=== PATIENT | female | born 1970 | race Caucasian/White ===

== ENCOUNTER 2018-07-03 14:11 | Day surgery (SDC) | payer OTHER, SELFPAY ==
--- NOTE | 2018-07-03 | PATH_ITS ---
[facility] Accession Number: [id number] . 01 Material submitted: . ESOPHAGEAL BIOPSY . 01 Clinical history: . ESOPHAGEAL BIOPSY, R/O EOSINOPHILIC ESOPHAGITIS . 02 Diagnosis: Esophageal Biopsy: Squamous mucosa with no diagnostic abnormality. Intraepithelial eosinophils are not increased. Negative for dysplasia and malignancy. [facility]/07/05/2018 . 02 Electronically signed: . Balbina Tyson MD, Pathologist NPI- [id number] . 01 Gross description: . ESOPHAGEAL BIOPSY: Received in formalin are multiple fragment(s) of lopes, soft tissue measuring 0.2 x 0.1 x 0.1 cm in aggregate submitted entirely in 1 cassette(s) /CKI /CKI . 02 Pathologist provided ICD-10: K20.9 . 02 CPT . 358450 Performed at: 01 [facility] [address] [address], [place], [place] [id number] MD Trever Swenson MD Phone: [phone] Performed at: 02 [facility] [address] [place], [place] [id number] MD Amy Marsh MD Phone: [phone]
--- NOTE | 2018-07-03 12:50 | PM.HP.1 ---
History of Present Illness Date Patient Seen: 07/03/18 Chief complaint: [id number] Narrative: 48-year-old female who was seen in our office on 06/18/2018 due to esophageal dysphagia. Please refer to our office note for further details. There had been no changes to Reglan of condition since that office visit. Patient History Social History household members: spouse and children Meds Home Medications Medication Instructions Recorded Confirmed Type aloe vera PO Q DAY #0 05/10/17 History amlodipine-benazepril [Lotrel] PO QDAY #0 05/10/17 History aspirin 162 mg PRN #0 05/10/17 History Allergies Allergy/AdvReac Type Severity Reaction Status Date / Time isoniazid AdvReac Intermediate Tingling Verified 07/03/18 14:58 in feet and hands Exam Narrative Exam Narrative: General: Patient is obese, not in apparent distress Cardiovascular: Regular rate and rhythm, no murmurs, rubs, or gallops; no evidence of edema; no palpable abdominal aortic aneurysm Gastrointestinal: Normoactive bowel sounds, soft, nontender, nondistended, no rebound tenderness, no hepatosplenomegaly, no evidence of hernia Assessment & Plan Assessment Narrative: 48-year-old female with esophageal dysphagia, history of gastric band who is here for evaluation by means of EGD Regarding the procedure(s), the risks and potential complications, benefits, and alternatives (including not doing the procedure) were discussed with the patient. The risks include but are not limited to bleeding, splenic injury, infection, perforation which may require surgical intervention, missed lesions, and adverse reactions to sedative medicines. After a question and answer period, the patient agreed to proceed with the procedure(s) and gives informed consent.
[2018-07-03 14:45] VITALS: BP 138/80; PULSE 96; RESP 20; TEMP 36.2; O2SAT 98; BMI 42.7
[2018-07-03] MEDS: SODIUM CHLORIDE 0.9% 1,000 ML 70 ML IV (14:45)
[2018-07-03] MEDS: fentaNYL 250 MCG/5 ML INJ IV (15:30)
[2018-07-03] MEDS: MIDAZOLAM 5 MG/5 ML VIAL IV (15:31)
--- NOTE | 2018-07-03 15:36 | PM.OP.ENDO ---
Operative Date/Time/Diagnoses Date of procedure: 07/03/18 Procedure Notes Procedure in detail: Surgeon: Chan Werner MD Procedure: Esophagogastroduodenoscopy with biopsy Preoperative diagnosis: Pharyngoesophageal dysphagia Postoperative diagnosis: Normal esophagus status post biopsies, lap band in adequate position, normal visualized stomach and duodenum Medications: Conscious sedation using 5 mg IV of Midazolam and 100 mcg IV of Fentanyl Preanesthesia Assessment An H and P was performed/updated and the Px?s ASA class is 2. The procedure was discussed in detail with the patient. The potential risks and complications including infection, bleeding, missed lesions, perforation, need for surgery in case of perforation, prolonged hospital stay, and were explained. A brief question and answer period was allotted and once all questions were answered, informed consent was obtained. The patient was brought back to the procedure room and placed on standard monitoring. The patient?s vital signs were monitored continuously throughout the entire procedure. Prior to starting, a timeout was performed to confirm the patient?s identity, allergies, medications, and procedure. Procedure in detail The patient was placed in left lateral decubitus position and a bite block was inserted. The tip of the upper endoscope was placed into the mouth and advanced without difficulty under direct visualization into the esophagus. Esophagus: The UES and entire esophagus appeared normal. Random biopsies were taken from the mid and proximal esophagus to rule out EOE. The GE junction and Z-line appeared normal Stomach: There was note of a lap band on retroflexion in the cardia and this appeared to be in adequate position. The remainder of the stomach appeared normal Duodenum: The visualized duodenum was normal The patient tolerated the procedure well and will be brought back to the recovery area to be discharged once criteria are met. The total physician intraservice time was 6 min. Complications There were no complications and estimated blood loss was minimal. Recommendations: Resume previous diet Continue outPx medications Follow up pathology results Office follow up with Dr Mix at next available appointment An emergency contact number was given to the patient for any complications related to the procedure
--- NOTE | 2018-07-03 15:50 | PM.DS.1 ---
History of Present Illness Chief complaint: [id number] Narrative: 48-year-old female who was seen in our office on 06/18/2018 due to esophageal dysphagia. Please refer to our office note for further details. There had been no changes to Reglan of condition since that office visit. Discharge Providers Primary care physician: Jaime Schwartz MD Discharge provider: Chan Werenr MD Discharge Date: 07/03/18 Exam Vital Signs (past 8 hours): - 07/03/18 14:45 Temperature 97.1 F L Pulse Rate 96 H Respiratory Rate 20 Blood Pressure 138/80 Pulse Oximetry 98 Oxygen Delivery Method Room Air Narrative Exam Narrative: General: Patient is obese, not in apparent distress Cardiovascular: Regular rate and rhythm, no murmurs, rubs, or gallops; no evidence of edema; no palpable abdominal aortic aneurysm Gastrointestinal: Normoactive bowel sounds, soft, nontender, nondistended, no rebound tenderness, no hepatosplenomegaly, no evidence of hernia Discharge Plan Discharge Plan Patient Disposition: Home Discharge comment: You will be discharged with a copy of your procedure report Discharge Med Rec/Prescriptions Prescriptions: Continued amlodipine-benazepril [Lotrel] 5-10 mg capsule PO QDAY Qty: 0 RF: 0 aspirin 81 MG tablet,chewable 162 mg PRN (Reason: Pain, Moderate) Qty: 0 RF: 0 aloe vera 25 mg capsule PO Q DAY Qty: 0 RF: 0 Follow up/Referrals: Jaime Schwartz MD [Primary Care Provider] - Discharge Orders: Discharge (Order); Ordered 07/03/18 Ordered By: Chan Werner Provider Discharge Instructions Diet: Diet as Tolerated Visit Report/Discharge Packet Stand Alone Forms: EGD Result: [facility], Surgery Discharge Discharge Data Primary Care Provider: Jaime Shcwartz Attending Provider: Chan Werner
[2018-07-03 15:53] VITALS: BP 136/70; PULSE 89; RESP 21; TEMP 37; O2SAT 97
[2018-07-03 15:58] VITALS: BP 126/77; PULSE 84; RESP 19; O2SAT 97
[2018-07-03 16:03] VITALS: BP 124/71; PULSE 93; RESP 22; O2SAT 95
[2018-07-03 16:25] VITALS: BP 128/77; PULSE 84; RESP 20; TEMP 36.7; O2SAT 98
== END 2018-07-03 16:30 | disposition home or self-care (01) ==
PROVIDERS: Visit Provider Internal Medicine Gastroenterology
PROC: 0DJ08ZZ Inspection of Upper Intestinal Tract, Via Natural or Artificial Opening Endoscopic (ICD-10-PCS; CPT 43235; principal; 2018-07-03 15:30)
DX: K20.9 Esophagitis, unspecified (principal); Z98.84 Bariatric surgery status
CPT/HCPCS: 43239; 88305; J2250; J3010

== ENCOUNTER 2018-07-10 12:08 | Emergency (ER) | payer OTHER, SELFPAY ==
[2018-07-10 12:12] VITALS: BP 135/90; PULSE 98; RESP 16; TEMP 36.1; O2SAT 98; BMI 43.5
[2018-07-10 14:43] VITALS: BP 148/95; PULSE 87; RESP 18; O2SAT 96
--- NOTE | 2018-07-10 14:47 | PC.NURSE ---
Pt has a hard bump on left cheek.
--- NOTE | 2018-07-10 19:39 | ED_ITS ---
HPI - Head Injury General Chief complaint: Head Injury Stated complaint: BROKEN FACIAL BONES LT SIDE Time Seen by Provider: 07/10/18 12:25 Source: patient Mode of arrival: ambulatory Limitations: no limitations History of Present Illness HPI Narrative: 48-year-old female, nonsmoker with history of hypertension presents at the request of her primary care provider for evaluation of a bump on her left face. Patient suffered a ground level fall about 1 month ago which resulted in rather impressive bruising over her left cheek. That bruising has since resolved but there is small, quarter sized lump left in the aftermath. The patient denies any ongoing symptoms. She has no pain, denies double vision or blurred vision, denies any numbness or tingling to her teeth and is otherwise well. She denies other injury. She has no nausea, vomiting. She denies any chest pain or shortness of breath. She denies any extremity injuries MD Complaint: head injury Onset (ago): month(s) Mechanism of Injury: fall Place: home Loss of Consciousness: no Location of injury: frontal Other Injuries: none Associated symptoms: denies other symptoms Related Data Home Medications Medication Instructions Recorded Confirmed aloe vera PO Q DAY #0 05/10/17 aspirin 162 mg PRN #0 05/10/17 amlodipine-benazepril 1 cap PO DAILY 07/10/18 07/10/18 Allergies Allergy/AdvReac Type Severity Reaction Status Date / Time isoniazid AdvReac Intermediate Tingling Verified 07/10/18 12:12 in feet and hands Review of Systems Constitutional Denies chills, Denies fever(s), Denies lethargy and Denies weakness Eyes Denies change in vision, Denies eye discharge, Denies irritation and Denies loss of vision ENT Ears, Nose, Mouth, and Throat: Denies change in voice, Denies neck pain and Denies sore throat Cardiovascular Denies chest pain, Denies irregular heart rhythm, Denies lightheadedness, Denies palpitations, Denies dyspnea, Denies dyspnea on exertion and Denies orthopnea Respiratory Denies cough, Denies dyspnea, Denies dyspnea on exertion and Denies wheezing Gastrointestinal Gastrointestinal: Denies abdominal pain, Denies change in bowel habits, Denies diarrhea, Denies nausea and Denies vomiting Genitourinary Denies hematuria, Denies flank pain, Denies urinary incontinence and Denies urinary urgency Musculoskeletal Denies neck pain Integumentary/Breasts Denies pruritus, Denies erythema, Denies rash, Reports skin pain, Reports skin swelling and Denies wounds Neurologic Denies confusion, Denies loss of vision and Denies weakness Psychiatric Denies anxiety, Denies confusion, Denies depression, Denies homicidal ideation and Denies suicidal ideation Endocrine Denies palpitations Hematologic/Lymphatic Denies easy bruising Allergic/Immunologic Denies wheezing PFSH Social History household members: spouse and children Smoking Status: Never smoker Social History household members: spouse and children Smoking Status: Never smoker Exam Narrative Exam Narrative: GEN: AOx3 and in mild distress, GCS 15 EYES: Pupils are equal, round, and reactive to light and accommodation. Extraoccular muscles are intact bilaterally. There is no subconjunctival hemorrhage or exudate. HEAD: 2cm area of freely mobile induration in the skin of face overlying L zygoma. The underlying bone is nontender. CHEST: Lungs are clear to auscultation bilaterally and free of wheezes, rales, or rhonchi. Heart rate is regular rhythm, there are no murmurs, clicks, rubs, or gallops. There is no chest wall tenderness. ABD: Abdomen is soft and nontender. There is no guarding or rebound. Bowel sounds are normal in all 4 quadrants. There is no mass or organomegaly. EXT: Full painless ROM of all extremities with no loss of sensation or strength. SKIN: Warm, pink, and dry. No erythema or rash Initial Vital Signs Initial Vital Signs: Vital Signs Temperature 96.9 F L 07/10/18 12:12 Pulse Rate 98 H 07/10/18 12:12 Respiratory Rate 16 07/10/18 12:12 Blood Pressure 135/90 07/10/18 12:12 Pulse Oximetry 98 07/10/18 12:12 Course Reevaluation(s) Reevaluation #1: I had a lengthy discussion with the patient about how to proceed. Even if she had a fracture 1 month ago. It is likely almost completely healed by now. She has no evidence of entrapment of extraocular muscles or involvement of facial or alveolar nerves. She is nontender and any advanced imaging is very unlikely to change the outcome. The area of induration is likely a residual hematoma from the fall given her description of the amount of bruising. There is no redness, fluctuance or warmth to suggest infectious etiology. We discussed the pros and cons of doing advanced imaging and she elects to forego a facial bone CT right now as it is unlikely to change the outcome of her case or disposition Vital Signs - 8 hr 07/10/18 12:12 07/10/18 14:43 Temperature 96.9 F L Pulse Rate 98 H 87 Respiratory Rate 16 18 Blood Pressure 135/90 Blood Pressure [Left Arm] 148/95 H Pulse Oximetry 98 96 Discharge Plan Departure Patient Disposition: Home Clinical Impression: Contusion of face Qualifiers: Encounter type: initial encounter Qualified Code(s): S00.83XA - Contusion of other part of head, initial encounter Discharge Date/Time: 07/10/18 15:17 Interventions: ED Discharge Assessment Last Done: 07/10/18 15:17 Instructions: DI for Contusion Activity Restrictions/Additional Instructions: *You have been diagnosed with [ facial contusion ] *What to do: *Follow up with your primary care provider in 2-3 days, call for an appoint ment. Let them know you were seen in the Emergency Department and that we ask that you be seen in follow up *Return to ER if you should have any new, worsening or concerning symptoms Prescriptions: No Action aspirin 81 MG tablet,chewable 162 mg PRN (Reason: Pain, Moderate) Qty: 0 RF: 0 aloe vera 25 mg capsule PO Q DAY Qty: 0 RF: 0 amlodipine-benazepril 10-40 mg capsule 1 cap PO DAILY RF: 0 Referrals: Jaime Schwartz MD [Primary Care Provider] -
== END 2018-07-10 15:17 | disposition home or self-care (01) ==
PROVIDERS: Emergency Provider Emergency Medicine
DX: S00.83XA Contusion of other part of head, initial encounter (principal); W18.43XA Slipping, tripping and stumbling without falling due to stepping from one level to another, initial encounter
CPT/HCPCS: 99282

== ENCOUNTER 2019-03-13 03:47 | Emergency (ER) | payer OTHER, SELFPAY ==
--- NOTE | 2019-03-13 04:22 | ED.CHESTPAIN ---
HPI - Chest Pain <Henrry Ghotra DO - Last Filed: 03/13/19 22:25> General Chief Complaint: Chest Pain Stated Complaint: chest issues/heavy heart area/neck shoulders tight Time Seen by Provider: 03/13/19 04:00 Source: patient Mode of arrival: Ambulatory Limitations: no limitations History of Present Illness HPI narrative: 48-year-old female nonsmoker with history of hypertension and morbid obesity presents with a chief complaint of anterior chest pressure that started at about 2:00 a.m.. She went to bed feeling fine but was awoke and by a barking dog at which point she noted some anterior chest pressure. She states his is aching in nature and a 2/10 in intensity. She denies any radiation. She states it is made worse when she lies flat and improves when sitting up. She walked an abnormal distance for her earlier in the day and denies any provocation with exertion. Additionally, she denies any associated symptoms or other cardiac equivalent such as dizziness, weakness, lightheadedness, shortness of breath, nausea, vomiting or diaphoresis. She denies any history of same. She denies any recent illness. She denies any recent travel, history of clot or other risk factors for PE. She did take 2 baby aspirin prior to her arrival MD complaint: chest pain Onset (ago): hour(s) Duration: intermittent Onset: during rest Pain location: substernal Severity: mild Quality: aching Pain radiation: none Relieving factors: leaning forward Exacerbating factors: supine Treatments prior to arrival chest pain: aspirin Related Data On Oral Contraceptives: No Home Medications Medication Instructions Recorded Confirmed aloe vera PO Q DAY #0 05/10/17 aspirin 162 mg PRN #0 05/10/17 amlodipine-benazepril 1 cap PO DAILY 07/10/18 07/10/18 Allergies Allergy/AdvReac Type Severity Reaction Status Date / Time isoniazid AdvReac Intermediate Tingling Verified 07/10/18 12:12 in feet and hands Review of Systems <Henrry Ghotra DO - Last Filed: 03/13/19 22:25> Constitutional Constitutional: Denies chills, Denies fatigue, Denies fever(s), Denies frequent falls, Denies lethargy and Denies weakness Eyes Eyes: Denies change in vision, Denies eye discharge, Denies irritation and Denies loss of vision ENT Ears, Nose, Mouth, and Throat: Denies change in voice, Denies dizziness, Denies neck pain, Denies sore throat and Denies throat swelling Cardiovascular Cardiovascular: Reports chest pain, Denies irregular heart rhythm, Denies lightheadedness, Denies palpitations, Denies dyspnea, Denies dyspnea on exertion and Denies orthopnea Respiratory Respiratory: Denies cough, Denies dyspnea, Denies dyspnea on exertion and Denies wheezing Gastrointestinal Gastrointestinal: Denies abdominal pain, Denies change in bowel habits, Denies diarrhea, Denies nausea and Denies vomiting Genitourinary Genitourinary: Denies hematuria, Denies flank pain, Denies urinary incontinence and Denies urinary urgency Musculoskeletal Musculoskeletal: Denies back pain, Denies muscle weakness, Denies neck pain, Denies numbness and Denies tingling Integumentary/Breasts Skin/Breast: Denies pruritus, Denies erythema, Denies rash and Denies wounds Neurologic Neurologic: Denies behavioral changes, Denies confusion, Denies dizziness, Denies frequent falls, Denies loss of vision, Denies numbness, Denies tingling and Denies weakness Psychiatric Psychiatric: Denies anxiety, Denies behavioral changes, Denies confusion, Denies depression, Denies homicidal ideation and Denies suicidal ideation Endocrine Endocrine: Denies fatigue, Denies flushing and Denies palpitations Hematologic/Lymphatic Hematologic/Lymphatic: Denies easy bruising Allergic/Immunologic Allergic/Immunologic: Denies urticaria, Denies throat swelling and Denies wheezing Patient History <Henrry Ghtora DO - Last Filed: 03/13/19 22:25> Social History household members: spouse and children Smoking Status: Never smoker Social History household members: spouse and children Smoking Status: Never smoker alcohol intake frequency: holidays/special occasions only Substance Use Type: does not use Exam <Henrry Ghotra DO - Last Filed: 03/13/19 22:25> Narrative Exam Narrative: GENERAL: [48] year old patient appears stated age. Well-nourished, well-developed patient, in mild distress. Obese HEAD: Atraumatic. Normocephalic. EYES: Pupils equal round and reactive. Extraocular motions intact. No scleral icterus. No injection or drainage. ENT: Nose without bleeding, purulent drainage. Throat without erythema, tonsillar hypertrophy or exudate. Airway patent. NECK: Trachea midline. Non tender CARDIOVASCULAR: Regular rate and rhythm without murmurs, gallops, or rubs. RESPIRATORY: Clear to auscultation. Breath sounds equal bilaterally. No wheezes, rales, or rhonchi. GASTROINTESTINAL: Abdomen soft, non-tender, nondistended. EXTREMITIES: No edema or joint tenderness. BACK: Nontender without deformity or crepitance. No flank tenderness. NEURO: AOx3. SKIN: No rash or erythema of visible areas Initial Vital Signs Initial Vital Signs: Vital Signs Pulse Rate 77 03/13/19 05:31 Respiratory Rate 17 03/13/19 05:31 Blood Pressure 120/56 L 03/13/19 05:31 Pulse Oximetry 98 03/13/19 05:31 <Balbina Galo MD - Last Filed: 03/13/19 19:58> Initial Vital Signs Initial Vital Signs: Vital Signs Pulse Rate 77 03/13/19 05:31 Respiratory Rate 17 03/13/19 05:31 Blood Pressure 120/56 L 03/13/19 05:31 Pulse Oximetry 98 03/13/19 05:31 Scores <Henrry Ghotra DO - Last Filed: 03/13/19 22:25> HEART Score Heart Score history: Slightly Suspicious Heart Score EKG: Normal Heart Score Age: 45-64 years old Heart Score risk factors: 1-2 risk factors Heart Score troponin: < or = to normal limit Heart Score Total: 2 Course <Henrry Ghotra DO - Last Filed: 03/13/19 22:25> Orders Ordered: Discontinued Medications Aspirin (Aspirin Chew) 324 mg PO NOW ONE Stop: 03/13/19 04:50 Last Admin: 03/13/19 05:06 Dose: 324 mg Documented by: JENNY Pantoprazole Sodium (Protonix) 40 mg IV NOW ONE Stop: 03/13/19 04:50 Last Admin: 03/13/19 05:06 Dose: 40 mg Documented by: BRANDOFARL <Balbina Galo MD - Last Filed: 03/13/19 19:58> Course Course Narrative: Iraj note: Patient was signed out to me by Dr. Ghotra pending repeat troponin after initially being evaluated for chest pain. Her initial workup was negative. The patient was pain-free in the emergency department at the time of sign out, and was feeling quite good. She had a low risk score. Her repeat troponin was negative. We have discussed home management of symptoms, the need for follow-up, and the usual indications for return. Orders Ordered: Discontinued Medications Aspirin (Aspirin Chew) 324 mg PO NOW ONE Stop: 03/13/19 04:50 Last Admin: 03/13/19 05:06 Dose: 324 mg Documented by: JENNY Pantoprazole Sodium (Protonix) 40 mg IV NOW ONE Stop: 03/13/19 04:50 Last Admin: 03/13/19 05:06 Dose: 40 mg Documented by: JENNY MDM - Chest Pain <Henrry Ghotra DO - Last Filed: 03/13/19 22:25> Lab Data Result diagrams: 03/13/19 04:00 03/13/19 04:00 Labs: Lab Results 03/13/19 03/13/19 03/13/19 Range/Units 04:00 04:00 04:00 WBC 12.7 H (4.5-11.0) X10^3/uL RBC 4.84 (4.0-5.2) X10^6/uL Hgb 14.0 (12.0-16.0) g/dL Hct 41.9 (36-46) % MCV 86.6 (80-100) fL MCH 29.0 (26-34) PG MCHC 33.4 (30-36) % RDW 13.6 (11.6-14.8) % Plt Count 303 (150-400) X10^3/uL Neut % (Auto) 73.4 (50-75) % Lymph % (Auto) 18.8 L (25-40) % Cedar % (Auto) 5.9 (3-14) % Eos % (Auto) 1.4 L (2-4) % Baso % (Auto) 0.5 (0-2) % Neut # (Auto) 9400 H (5692-7458) /uL Lymph # (Auto) 2400 (2111-9851) /uL Cedar # (Auto) 800 (0-900) /uL Eos # (Auto) 200 (0-450) /uL Baso # (Auto) 100 (0-100) /uL PT 10.2 (10.1-12.7) SECONDS INR 0.9 (0.9-1.3) APTT 34 (26.4-36.2) SECONDS D-Dimer (<230) ng/mL Sodium 137 (137-145) mmol/L Potassium 4.1 (3.4-5.1) mmol/L Chloride 104 (98-107) mmol/L Carbon Dioxide 24 (22-32) mmol/L BUN 11 (7-17) mg/dL Creatinine 0.60 (0.52-1.04) mg/dL Estimated GFR > 60.0 (>60) mL/min BUN/Creatinine Ratio 18.3 (6-22) Glucose 151 H (70-100) mg/dL Calcium 9.2 (8.4-10.2) mg/dL Total Bilirubin 0.9 (0.2-1.3) mg/dL AST 30 (14-36) IU/L ALT 34 (9-52) IU/L Alkaline Phosphatase 90 (38-126) U/L Total Creatine Kinase 49 (30-135) U/L CK-MB (CK-2) TNP CK-MB (CK-2) Rel Index TNP Troponin I < 0.012 (0.01-0.034) ng/mL Total Protein 7.7 (6.3-8.2) g/dL Albumin 4.4 (3.5-5.0) g/dL Globulin 3.3 (1.7-4.1) g/dL Albumin/Globulin Ratio 1.3 (1.0-2.8) Lipase 58 (23-300) U/L 03/13/19 03/13/19 Range/Units 04:00 06:50 WBC (4.5-11.0) X10^3/uL RBC (4.0-5.2) X10^6/uL Hgb (12.0-16.0) g/dL Hct (36-46) % MCV (80-100) fL MCH (26-34) PG MCHC (30-36) % RDW (11.6-14.8) % Plt Count (150-400) X10^3/uL Neut % (Auto) (50-75) % Lymph % (Auto) (25-40) % Cedar % (Auto) (3-14) % Eos % (Auto) (2-4) % Baso % (Auto) (0-2) % Neut # (Auto) (3490-8606) /uL Lymph # (Auto) (1266-9205) /uL Cedar # (Auto) (0-900) /uL Eos # (Auto) (0-450) /uL Baso # (Auto) (0-100) /uL PT (10.1-12.7) SECONDS INR (0.9-1.3) APTT (26.4-36.2) SECONDS D-Dimer 205 (<230) ng/mL Sodium (137-145) mmol/L Potassium (3.4-5.1) mmol/L Chloride (98-107) mmol/L Carbon Dioxide (22-32) mmol/L BUN (7-17) mg/dL Creatinine (0.52-1.04) mg/dL Estimated GFR (>60) mL/min BUN/Creatinine Ratio (6-22) Glucose (70-100) mg/dL Calcium (8.4-10.2) mg/dL Total Bilirubin (0.2-1.3) mg/dL AST (14-36) IU/L ALT (9-52) IU/L Alkaline Phosphatase (38-126) U/L Total Creatine Kinase (30-135) U/L CK-MB (CK-2) CK-MB (CK-2) Rel Index Troponin I < 0.012 (0.01-0.034) ng/mL Total Protein (6.3-8.2) g/dL Albumin (3.5-5.0) g/dL Globulin (1.7-4.1) g/dL Albumin/Globulin Ratio (1.0-2.8) Lipase (23-300) U/L ECG Data Attestation: I personally reviewed and interpreted this ECG as follows: Prior ECG tracings: not available for review Interpretation: EKG is normal sinus rhythm rate [ 88] and free of any signs of ischemia or ectopy. No ST segmental elevation or depression. No T wave inversions <Balbina Galo MD - Last Filed: 03/13/19 19:58> Medical Records Data Attestation: I reviewed the patient's medical records. Lab Data Attestation: I reviewed the patient's lab results. Labs: Lab Results 03/13/19 03/13/19 03/13/19 Range/Units 04:00 04:00 04:00 WBC 12.7 H (4.5-11.0) X10^3/uL RBC 4.84 (4.0-5.2) X10^6/uL Hgb 14.0 (12.0-16.0) g/dL Hct 41.9 (36-46) % MCV 86.6 (80-100) fL MCH 29.0 (26-34) PG MCHC 33.4 (30-36) % RDW 13.6 (11.6-14.8) % Plt Count 303 (150-400) X10^3/uL Neut % (Auto) 73.4 (50-75) % Lymph % (Auto) 18.8 L (25-40) % Cedar % (Auto) 5.9 (3-14) % Eos % (Auto) 1.4 L (2-4) % Baso % (Auto) 0.5 (0-2) % Neut # (Auto) 9400 H (2604-4588) /uL Lymph # (Auto) 2400 (0504-4813) /uL Cedar # (Auto) 800 (0-900) /uL Eos # (Auto) 200 (0-450) /uL Baso # (Auto) 100 (0-100) /uL PT 10.2 (10.1-12.7) SECONDS INR 0.9 (0.9-1.3) APTT 34 (26.4-36.2) SECONDS D-Dimer (<230) ng/mL Sodium 137 (137-145) mmol/L Potassium 4.1 (3.4-5.1) mmol/L Chloride 104 (98-107) mmol/L Carbon Dioxide 24 (22-32) mmol/L BUN 11 (7-17) mg/dL Creatinine 0.60 (0.52-1.04) mg/dL Estimated GFR > 60.0 (>60) mL/min BUN/Creatinine Ratio 18.3 (6-22) Glucose 151 H (70-100) mg/dL Calcium 9.2 (8.4-10.2) mg/dL Total Bilirubin 0.9 (0.2-1.3) mg/dL AST 30 (14-36) IU/L ALT 34 (9-52) IU/L Alkaline Phosphatase 90 (38-126) U/L Total Creatine Kinase 49 (30-135) U/L CK-MB (CK-2) TNP CK-MB (CK-2) Rel Index TNP Troponin I < 0.012 (0.01-0.034) ng/mL Total Protein 7.7 (6.3-8.2) g/dL Albumin 4.4 (3.5-5.0) g/dL Globulin 3.3 (1.7-4.1) g/dL Albumin/Globulin Ratio 1.3 (1.0-2.8) Lipase 58 (23-300) U/L 03/13/19 03/13/19 Range/Units 04:00 06:50 WBC (4.5-11.0) X10^3/uL RBC (4.0-5.2) X10^6/uL Hgb (12.0-16.0) g/dL Hct (36-46) % MCV (80-100) fL MCH (26-34) PG MCHC (30-36) % RDW (11.6-14.8) % Plt Count (150-400) X10^3/uL Neut % (Auto) (50-75) % Lymph % (Auto) (25-40) % Cedar % (Auto) (3-14) % Eos % (Auto) (2-4) % Baso % (Auto) (0-2) % Neut # (Auto) (0492-0280) /uL Lymph # (Auto) (8990-1887) /uL Cedar # (Auto) (0-900) /uL Eos # (Auto) (0-450) /uL Baso # (Auto) (0-100) /uL PT (10.1-12.7) SECONDS INR (0.9-1.3) APTT (26.4-36.2) SECONDS D-Dimer 205 (<230) ng/mL Sodium (137-145) mmol/L Potassium (3.4-5.1) mmol/L Chloride (98-107) mmol/L Carbon Dioxide (22-32) mmol/L BUN (7-17) mg/dL Creatinine (0.52-1.04) mg/dL Estimated GFR (>60) mL/min BUN/Creatinine Ratio (6-22) Glucose (70-100) mg/dL Calcium (8.4-10.2) mg/dL Total Bilirubin (0.2-1.3) mg/dL AST (14-36) IU/L ALT (9-52) IU/L Alkaline Phosphatase (38-126) U/L Total Creatine Kinase (30-135) U/L CK-MB (CK-2) CK-MB (CK-2) Rel Index Troponin I < 0.012 (0.01-0.034) ng/mL Total Protein (6.3-8.2) g/dL Albumin (3.5-5.0) g/dL Globulin (1.7-4.1) g/dL Albumin/Globulin Ratio (1.0-2.8) Lipase (23-300) U/L Discharge Plan Departure Patient Disposition: Home Clinical Impression: Chest pain Qualifiers: Chest pain type: unspecified Qualified Code(s): R07.9 - Chest pain, unspecified Discharge Date/Time: 03/13/19 08:16 Instructions: DI for Chest Pain Activity Restrictions/Additional Instructions: Your labs and studies all look good. There is no evidence of a serious condition causing your pain. If you continue to have the pain for more than 1 week, please follow up with your primary care provider. Prescriptions: No Action aspirin 81 MG tablet,chewable 162 mg PRN (Reason: Pain, Moderate) Qty: 0 RF: 0 aloe vera 25 mg capsule PO Q DAY Qty: 0 RF: 0 amlodipine-benazepril 10-40 mg capsule 1 cap PO DAILY RF: 0 Referrals: [facility] [Provider Group]
--- NOTE | 2019-03-13 04:23 | DI.RAD.S_ITS ---
PROCEDURE: XR CHEST 1V INDICATIONS: chest pain TECHNIQUE: One view of the chest was acquired. COMPARISON: [facility], , CHEST 1 VIEW, 05/10/2017, 22:21. FINDINGS: Surgical changes and devices: A lap band is seen. Lungs and pleura: Lungs are clear. No pleural effusions or pneumothorax. Mediastinum: Mediastinal contours appear normal. Heart size is normal. Bones and chest wall: No suspicious bony lesions. Overlying soft tissues appear unremarkable. IMPRESSION: Portable chest within normal limits. Lap band noted. Dictated by: Joesph Paul M.D. on 03/13/2019 at 9:00 Approved by: Joesph Paul M.D. on 03/13/2019 at 9:00
[2019-03-13 04:35] LABS: Add Manual Diff / Slide Review NO; Basophils Absolute Auto 100 /uL (0-100); Basophils Percent Auto 0.5 % (0-2); Eosinophils Absolute Auto 200 /uL (0-450); Eosinophils Percent Auto 1.4 % (2-4); Hematocrit 41.9 % (36-46); Lymphocytes Absolute Auto 2400 /uL (1100-4500); Lymphocytes Percent Auto 18.8 % (25-40); Mean Corpuscular HGB Conc 33.4 % (30-36); Mean Corpuscular Volume 86.6 fL (80-100); Monocytes Absolute Auto 800 /uL (0-900); Monocytes Percent Auto 5.9 % (3-14); Neutrophils Absolute Auto 9400 /uL (1500-7000); Neutrophils Percent Auto 73.4 % (50-75); Platelet Count 303 X10^3/uL (150-400); Red Blood Cell Count 4.84 X10^6/uL (4.0-5.2); Red Cell Distribution Width 13.6 % (11.6-14.8); White Blood Cell Count 12.7 X10^3/uL (4.5-11.0)
[2019-03-13 04:37] LABS: INR 0.9 (0.9-1.3); Prothrombin Time 10.2 SECONDS (10.1-12.7)
[2019-03-13 04:40] LABS: PTT Partial Thromboplastin Tim 34 SECONDS (26.4-36.2)
[2019-03-13 04:44] LABS: Alanine Aminotransferase 34 IU/L (9-52); Albumin 4.4 g/dL (3.5-5.0); Albumin Globulin Ratio 1.3 (1.0-2.8); Alkaline Phosphatase 90 U/L (38-126); Aspartate Aminotransferase 30 IU/L (14-36); BUN Creatinine Ratio 18.3 (6-22); Bilirubin Total 0.9 mg/dL (0.2-1.3); Blood Urea Nitrogen 11 mg/dL (7-17); Calcium 9.2 mg/dL (8.4-10.2); Carbon Dioxide 24 mmol/L (22-32); Chloride 104 mmol/L (98-107); Creatine Kinase 49 U/L (30-135); Estimated Glomerular Filt Rate > 60.0 mL/min (>60); Globulin 3.3 g/dL (1.7-4.1); Glucose 151 mg/dL (70-100); HEMOLYSIS 23 (0-50); Lipase 58 U/L (23-300); Potassium 4.1 mmol/L (3.4-5.1); Sodium 137 mmol/L (137-145); Total Protein 7.7 g/dL (6.3-8.2)
[2019-03-13 04:48] LABS: D Dimer 205 ng/mL (<230)
[2019-03-13 04:54] LABS: Troponin I < 0.012 ng/mL (0.01-0.034)
[2019-03-13] MEDS: PANTOPRAZOLE 40 MG VIAL IV (05:06)
[2019-03-13] MEDS: ASPIRIN 81 MG CHEW TAB 324 MG PO (05:06)
[2019-03-13 05:31] VITALS: BP 120/56; PULSE 77; RESP 17; O2SAT 98
[2019-03-13 06:00] VITALS: BP 120/69; PULSE 75; RESP 21; O2SAT 96
[2019-03-13 07:23] LABS: Troponin I < 0.012 ng/mL (0.01-0.034)
[2019-03-13 07:30] VITALS: BP 115/62; PULSE 84; RESP 22; O2SAT 99
[2019-03-13 08:01] VITALS: BP 127/92; PULSE 80; RESP 13; O2SAT 100
[2019-03-13 08:15] VITALS: BP 127/92; PULSE 72; RESP 15
== END 2019-03-13 08:16 | disposition home or self-care (01) ==
PROVIDERS: Emergency Medicine; Emergency Provider Emergency Medicine
DX: R07.9 Chest pain, unspecified (principal)
CPT/HCPCS: 36415; 71045; 80053; 82550; 83690; 84484; 85025; 85379; 85610; 85730; 93005; 96374; 99283; 99285; C9113

== ENCOUNTER → 2021-03-07 15:17 | Outpatient (CLI) | payer OTHER, SELFPAY ==
--- NOTE | 2021-03-07 | DI.MG.S_ITS ---
BILATERAL DIGITAL SCREENING MAMMOGRAM 3D/2D WITH CAD: 03/07/2021 CLINICAL: Routine screening. Family history of breast cancer. Comparison is made to exams dated: 04/11/2018 mammogram, 06/01/2014 mammogram, and 11/02/2013 mammogram - outside location. The tissue of both breasts is heterogeneously dense. This may lower the sensitivity of mammography. Current study was also evaluated with a Computer Aided Detection (CAD) system. No significant masses, calcifications, or other findings are seen in either breast. There has been no significant interval change. IMPRESSION: NEGATIVE There is no mammographic evidence of malignancy. A 1 year screening mammogram is recommended. This exam was interpreted at Station ID: [id number]. NOTE: For mammograms, a report in lay terms will be sent to the patient. Approximately 15% of breast malignancies will not be visualized mammographically. In the management of a palpable breast mass, a negative mammogram must not discourage biopsy of a clinically suspicious lesion. Electronically Signed By: Juan Choe acr/kay:03/07/2021 16:16:27 letter sent: Normal Exam ACR BI-RADS Category 1: Negative [id number]
== END ==
PROVIDERS: PCP Family Medicine; Referring Provider Family Medicine; Visit Provider Family Medicine
DX: Z12.31 Encounter for screening mammogram for malignant neoplasm of breast (principal); Z80.3 Family history of malignant neoplasm of breast
CPT/HCPCS: 77063; 77067

== ENCOUNTER → 2022-05-12 09:26 | Outpatient (CLI) | payer OTHER, SELFPAY ==
--- NOTE | 2022-05-12 | DI.US.S_ITS ---
PROCEDURE: US ABDOMEN LIMITED INDICATIONS: Abnormal serum enzyme level, unspecified TECHNIQUE: Real-time focused scanning was performed of the abdomen, with image documentation. COMPARISON: None. FINDINGS: Liver length of 16.8 cm. The liver is echogenic. No biliary ductal dilation demonstrated, extrahepatic duct measures 6 mm. Multiple small gallstones are present in the gallbladder. No gallbladder wall thickening or sonographic Marley sign. Visualized pancreas is unremarkable sonographically. IMPRESSION: 1. The liver is echogenic, a nonspecific finding commonly seen in the setting of steatosis. 2. Cholelithiasis without evidence of acute cholecystitis. Dictated by: Jamey Priest M.D. on 05/12/2022 at 14:35 Approved by: Jamey Priest M.D. on 05/12/2022 at 14:36
== END ==
PROVIDERS: PCP Internal Medicine; Referring Provider Internal Medicine; Visit Provider Internal Medicine
DX: R74.9 Abnormal serum enzyme level, unspecified (principal); K80.20 Calculus of gallbladder without cholecystitis without obstruction
CPT/HCPCS: 76705

== ENCOUNTER 2022-05-20 17:57 | Emergency (ER) | payer OTHER, SELFPAY ==
[2022-05-20 18:11] VITALS: BP 125/82; PULSE 98; RESP 18; TEMP 36.3; O2SAT 98
--- NOTE | 2022-05-20 18:46 | DI.RAD.S_ITS ---
PROCEDURE: XR ACUTE ABDOMEN SERIES INDICATIONS: abd pain TECHNIQUE: One view chest and two views of the abdomen were acquired. COMPARISON: None. FINDINGS: Surgical changes and devices: Gastric band. IUD in the pelvis. Chest: Lungs are clear. Heart size is normal. No pleural effusions. No pneumoperitoneum. Abdomen: Somewhat prominent bowel gas in the transverse colon. Fecal residue is seen. No dilated loops of small bowel are identified. No suspicious calcifications. Visualized solid organ contours appear normal. Bones: No suspicious bony lesions. IMPRESSION: No acute cardiopulmonary abnormality. Nonobstructive bowel gas pattern. Dictated by: Elmer Licea M.D. on 05/20/2022 at 19:31 Approved by: Elmer Licea M.D. on 05/20/2022 at 19:33
--- NOTE | 2022-05-20 18:51 | ED_ITS ---
HPI - Abdominal Pain <Peyton Garcia PA-C - Last Filed: 05/20/22 20:52> General Chief Complaint: Abdominal Pain Stated Complaint: left abd pain x9 hours Time Seen by Provider: 05/20/22 18:43 Source: patient Mode of arrival: Ambulatory History of Present Illness HPI narrative: the patient is a 52 yo femlae with prior history of hypertension, perhaps IBS ( she has had severe diarrhea and had a colonoscopy 10 yr ago wo acute findings who presents with the acute onset of left upper quadrant pain radiating through to her back and to the epigastrium. She complains that her whole body is sore. It started when she woke up around 9:00 a.m. this morning associated with dry heaves but no actual vomiting. Kaci camacho is concerned as she has witnessed her spouse having bowel obstruction and is seeking medical attention She has not had much to eat or drink today. She is not reporting any diarrhea, has last BM was last PM, loose, which is NL for her Patient states she is jennifer menopausal, has IUD in place, her periods are light, and regular monthly She does not follow extactly dates of her period Denies urinary symptoms such as frequency urgency, did not drink much today, apart from a bottle of soda which she kept down No fever or chills Of note, her pain while she is waiting in ED is getting better. Patient does mention that she has not passed any gas all day which is quite unusual for her. She has not yet had a bowel movement. She is not complaining of chest pain, palpitations, fevers, cough, headache. Related Data Home Medications Medication Instructions Recorded Confirmed aloe vera 25 mg capsule PO Q DAY ##0 05/10/17 aspirin 81 mg chewable tablet 162 mg PRN Pain, Moderate ##0 05/10/17 amlodipine 10 mg-benazepril 40 mg 1 cap PO DAILY 07/10/18 07/10/18 capsule Allergies Allergy/AdvReac Type Severity Reaction Status Date / Time isoniazid AdvReac Intermediate Tingling Verified 07/10/18 12:12 in feet and hands <Debo Mejia MD - Last Filed: 05/21/22 01:06> History of Present Illness HPI narrative: the patient is a 52 yo femlae with prior history of hypertension, who presents with the acute onset of left upper quadrant pain radiating through to her back and to the epigastrium. She complains that her whole body is sore. It started when she woke up around 9:00 a.m. this morning associated with dry heaves but no actual vomiting. She has not had much to eat or drink today. Patient does mention that she has not passed any gas all day which is quite unusual for her. She has not yet had a bowel movement. She is not complaining of chest pain, palpitations, fevers, cough, headache. <Debo Mejia MD - Last Filed: 05/21/22 01:06> Review of Systems Narrative: Remainder of complete review of systems is otherwise unremarkable except for mark t included in the HPI. Patient History <Peyton Garcia PA-C - Last Filed: 05/20/22 20:52> Medical History (Updated 05/20/22 @ 22:37 by Debo Mejia MD) Hypertension Social History household members: spouse and children Smoking Status: Never smoker Smoking Status: Never smoker alcohol intake frequency: holidays/special occasions only Substance Use Type: does not use Exam <Peyton Garcia PA-C - Last Filed: 05/20/22 20:52> Initial Vital Signs Initial Vital Signs: Vital Signs Temperature 97.3 F L 05/20/22 18:11 Pulse Rate 98 H 05/20/22 18:11 Respiratory Rate 18 05/20/22 18:11 Blood Pressure 125/82 05/20/22 18:11 Pulse Oximetry 98 05/20/22 18:11 Oxygen Delivery Method 05/20/22 18:11 <Debo Mejia MD - Last Filed: 05/21/22 01:06> Initial Vital Signs Initial Vital Signs: Vital Signs Temperature 97.3 F L 05/20/22 18:11 Pulse Rate 98 H 05/20/22 18:11 Respiratory Rate 18 05/20/22 18:11 Blood Pressure 125/82 05/20/22 18:11 Pulse Oximetry 98 05/20/22 18:11 Oxygen Delivery Method 05/20/22 18:11 General: Healthy appearing, in moderate discomfort but Able to give a complete and coherent history. Well-nourished well-developed HEENT: Moist mucous membranes, normal sclera with reactive pupils, Neck: No JVD, supple Respiratory: Lungs are clear to auscultation, no wheezing no rales no rhonchi. Full and symmetrical air movement Cardiac: Regular rate and rhythm no murmurs no bruits Abdomen: Soft, significant tenderness in the left upper quadrant to the epigastrium good bowel tones, no flank pain Skin: Warm and dry, no rashes Neurologic: Grossly neurologically intact with no obvious asymmetries or abnormalities Extremities: No trauma, well perfused Psych: Cooperative, appropriate insight and affect Course <Peyton Garcia PA-C - Last Filed: 05/20/22 20:52> Orders Ordered: ED Orders 05/20/22 18:30 Respiratory Panel (Film Array) Stat 05/20/22 18:35 Ictotest Urine Stat Urine Culture Stat Urine Microscopic Stat 05/20/22 18:46 XR acute abdomen series Stat 05/20/22 20:05 Complete Blood Count AUTO DIFF Stat Comprehensive Metabolic Panel Stat Lactate (Lactic Acid) Stat Lipase Stat 05/20/22 20:34 CT abdomen w con Stat 05/20/22 23:00 Blood Culture Stat Hydromorphone HCl (Hydromorphone 0.5 Mg Inj) 0.5 mg IV Q15MIN PRN PRN Reason: Pain, Last Admin: 05/20/22 21:50 Dose: 0.5 mg Documented By: FÉLIX Ondansetron HCl (Ondansetron 4 Mg/2 Ml Inj) 4 mg IV NOW PRN PRN Reason: Nausea And Vomiting Discontinued Medications Ceftriaxone Sodium 2,000 mg/ (Sodium Chloride) 100 mls @ 200 mls/hr IV NOW ONE Stop: 05/20/22 22:23 Last Infusion: 05/20/22 23:17 Dose: 0 mls/hr Documented By: Admin: 05/20/22 23:05 Dose: 200 mls/hr Documented By: ALONDRA Sodium Chloride (Normal Saline 0.9%) 1,000 mls @ 1,000 mls/hr IV BOLUS ONE Stop: 05/20/22 23:29 Last Infusion: 05/21/22 00:09 Dose: 0 mls/hr Documented By: Admin: 05/20/22 22:36 Dose: 1,000 mls/hr Documented By: LALIT Ketorolac Tromethamine (Ketorolac 60 Mg/2 Ml Vial) 15 mg IV NOW ONE Stop: 05/20/22 22:31 Last Admin: 05/20/22 22:34 Dose: Not Given Documented By: ALONDRA Ketorolac Tromethamine (Ketorolac 30 Mg/Ml Vial) 15 mg IV NOW ONE Stop: 05/20/22 22:34 Last Admin: 05/20/22 22:36 Dose: 15 mg Documented By: LALIT Vital Signs Vital signs: Vital Signs - 8 hr 05/20/22 18:11 05/20/22 23:10 05/20/22 23:11 Temperature 97.3 F L Pulse Rate 98 H 78 76 Respiratory Rate 18 Blood Pressure 125/82 Pulse Oximetry 98 98 98 Oxygen Delivery Method Room Air 05/20/22 23:11 05/20/22 23:30 05/21/22 00:01 Temperature Pulse Rate 76 82 Respiratory Rate Blood Pressure 127/69 Pulse Oximetry 97 98 Oxygen Delivery Method 05/21/22 00:55 Temperature 98.1 F Pulse Rate 79 Respiratory Rate Blood Pressure 128/73 Pulse Oximetry 98 Oxygen Delivery Method Room Air <Debo Mejia MD - Last Filed: 05/21/22 01:06> Orders Ordered: ED Orders 05/20/22 18:30 Respiratory Panel (Film Array) Stat 05/20/22 18:35 Ictotest Urine Stat Urine Culture Stat Urine Microscopic Stat 05/20/22 18:46 XR acute abdomen series Stat 05/20/22 20:05 Complete Blood Count AUTO DIFF Stat Comprehensive Metabolic Panel Stat Lactate (Lactic Acid) Stat Lipase Stat 05/20/22 20:34 CT abdomen w con Stat 05/20/22 23:00 Blood Culture Stat Hydromorphone HCl (Hydromorphone 0.5 Mg Inj) 0.5 mg IV Q15MIN PRN PRN Reason: Pain, Last Admin: 05/20/22 21:50 Dose: 0.5 mg Documented By: FÉLIX Ondansetron HCl (Ondansetron 4 Mg/2 Ml Inj) 4 mg IV NOW PRN PRN Reason: Nausea And Vomiting Discontinued Medications Ceftriaxone Sodium 2,000 mg/ (Sodium Chloride) 100 mls @ 200 mls/hr IV NOW ONE Stop: 05/20/22 22:23 Last Infusion: 12/24/22 23:17 Dose: 0 mls/hr Documented By: Admin: 05/20/22 23:05 Dose: 200 mls/hr Documented By: ALONDRA Sodium Chloride (Normal Saline 0.9%) 1,000 mls @ 1,000 mls/hr IV BOLUS ONE Stop: 05/20/22 23:29 Last Infusion: 05/21/22 00:09 Dose: 0 mls/hr Documented By: Admin: 05/20/22 22:36 Dose: 1,000 mls/hr Documented By: LALIT Ketorolac Tromethamine (Ketorolac 60 Mg/2 Ml Vial) 15 mg IV NOW ONE Stop: 05/20/22 22:31 Last Admin: 05/20/22 22:34 Dose: Not Given Documented By: ALONDRA Ketorolac Tromethamine (Ketorolac 30 Mg/Ml Vial) 15 mg IV NOW ONE Stop: 05/20/22 22:34 Last Admin: 05/20/22 22:36 Dose: 15 mg Documented By: LALIT Vital Signs Vital signs: Vital Signs - 8 hr 05/20/22 18:11 05/20/22 23:10 05/20/22 23:11 Temperature 97.3 F L Pulse Rate 98 H 78 76 Respiratory Rate 18 Blood Pressure 125/82 Pulse Oximetry 98 98 98 Oxygen Delivery Method Room Air 05/20/22 23:11 05/20/22 23:30 05/21/22 00:01 Temperature Pulse Rate 76 82 Respiratory Rate Blood Pressure 127/69 Pulse Oximetry 97 98 Oxygen Delivery Method 05/21/22 00:55 Temperature 98.1 F Pulse Rate 79 Respiratory Rate Blood Pressure 128/73 Pulse Oximetry 98 Oxygen Delivery Method Room Air MDM - Abdominal Pain <Peyton Garcia PA-C - Last Filed: 05/20/22 20:52> Lab Data Result diagrams: 05/20/22 20:05 05/20/22 20:05 Labs: Lab Results 05/20/22 05/20/22 05/20/22 Range/Units 18:30 18:35 18:35 WBC (4.5-11.0) X10^3/uL RBC (4.0-5.2) X10^6/uL Hgb (12.0-16.0) g/dL Hct (36-46) % MCV (80-100) fL MCH (26-34) PG MCHC (30-36) % RDW (11.6-14.8) % Plt Count (150-400) X10^3/uL Neut % (Auto) (50-75) % Lymph % (Auto) (25-40) % [place] % (Auto) (3-14) % Eos % (Auto) (2-4) % Baso % (Auto) (0-2) % Neut # (Auto) (4288-6291) /uL Lymph # (Auto) (4827-5937) /uL [place] # (Auto) (0-900) /uL Eos # (Auto) (0-450) /uL Baso # (Auto) (0-100) /uL Sodium (137-145) mmol/L Potassium (3.4-5.1) mmol/L Chloride (98-107) mmol/L Carbon Dioxide (22-32) mmol/L BUN (7-17) mg/dL Creatinine (0.52-1.04) mg/dL Estimated GFR (>60) mL/min BUN/Creatinine Ratio (6-22) Glucose (70-100) mg/dL Lactate (0.7-2.1) mmol/L Calcium (8.4-10.2) mg/dL Total Bilirubin (0.2-1.3) mg/dL AST (14-36) IU/L ALT (<35) IU/L Alkaline Phosphatase (38-126) U/L Total Protein (6.3-8.2) g/dL Albumin (3.5-5.0) g/dL Globulin (1.7-4.1) g/dL Albumin/Globulin Ratio (1.0-2.8) Lipase (23-300) U/L Ur Bilirubin Confirm Negative (Negative) Urine RBC 1-5/hpf (0-5/HPF) Urine WBC 1-5/hpf (0-5/HPF) Ur Squamous Epith Cells 5-10 /hpf H (0-5/HPF) Amorphous Sediment 1+ Urine Bacteria Few (2-10) H (None) Urine Mucus 1+ H (Negative) Ur Culture Indicated? Specimen cultured Chlamy pneumoniae PCR Not detected (Not Detect) Adenovirus (PCR) Not detected (Not Detect) B. pertussis DNA (PCR) Not detected (Not Detecte) B.parapertussis DNA PCR Not detected (Not Detecte) Coronavirus OC43 (PCR) Not detected (Not Detect) Coronavirus HKU1 (PCR) Not detected (Not Detect) Coronavirus 229E (PCR) Not detected (Not Detect) SARS-CoV-2 (PCR) Not detected (Not Detecte) Coronavirus NL63 (PCR) Not detected (Not Detect) Human Metapneumovir PCR Not detected (Not Detect) Influenza Type A (PCR) Not detected (Not Detect) Influenza Type B (PCR) Not detected (Not Detect) M. pneumoniae (PCR) Not detected (Not Detect) Parainfluenza 1 (PCR) Not detected (Not Detect) Parainfluenza 2 (PCR) Not detected (Not Detect) Parainfluenza 3 (PCR) Not detected (Not Detect) Parainfluenza 4 (PCR) Not detected (Not Detect) RSV (PCR) Not detected (Not Detect) Entero/Rhino (PCR) Not detected (Not Detect) 05/20/22 05/20/22 05/20/22 Range/Units 20:05 20:05 20:05 WBC 16.1 H (4.5-11.0) X10^3/uL RBC 4.73 (4.0-5.2) X10^6/uL Hgb 13.7 (12.0-16.0) g/dL Hct 40.6 (36-46) % MCV 85.8 (80-100) fL MCH 28.9 (26-34) PG MCHC 33.6 (30-36) % RDW 13.1 (11.6-14.8) % Plt Count 312 (150-400) X10^3/uL Neut % (Auto) 86.5 H (50-75) % Lymph % (Auto) 8.5 L (25-40) % [place] % (Auto) 4.4 (3-14) % Eos % (Auto) 0.0 L (2-4) % Baso % (Auto) 0.6 (0-2) % Neut # (Auto) 51076 H (0961-7510) /uL Lymph # (Auto) 1400 (9153-0099) /uL [place] # (Auto) 700 (0-900) /uL Eos # (Auto) 0 (0-450) /uL Baso # (Auto) 100 (0-100) /uL Sodium 135 L (137-145) mmol/L Potassium 4.1 (3.4-5.1) mmol/L Chloride 104 (98-107) mmol/L Carbon Dioxide 23 (22-32) mmol/L BUN 9 (7-17) mg/dL Creatinine 0.86 (0.52-1.04) mg/dL Estimated GFR > 60 (>60) mL/min BUN/Creatinine Ratio 10.5 (6-22) Glucose 137 H (70-100) mg/dL Lactate 1.4 (0.7-2.1) mmol/L Calcium 8.9 (8.4-10.2) mg/dL Total Bilirubin 1.9 H (0.2-1.3) mg/dL AST 24 (14-36) IU/L ALT 27 (<35) IU/L Alkaline Phosphatase 72 (38-126) U/L Total Protein 7.7 (6.3-8.2) g/dL Albumin 4.3 (3.5-5.0) g/dL Globulin 3.4 (1.7-4.1) g/dL Albumin/Globulin Ratio 1.3 (1.0-2.8) Lipase 32 (23-300) U/L Ur Bilirubin Confirm (Negative) Urine RBC (0-5/HPF) Urine WBC (0-5/HPF) Ur Squamous Epith Cells (0-5/HPF) Amorphous Sediment Urine Bacteria (None) Urine Mucus (Negative) Ur Culture Indicated? Chlamy pneumoniae PCR (Not Detect) Adenovirus (PCR) (Not Detect) B. pertussis DNA (PCR) (Not Detecte) B.parapertussis DNA PCR (Not Detecte) Coronavirus OC43 (PCR) (Not Detect) Coronavirus HKU1 (PCR) (Not Detect) Coronavirus 229E (PCR) (Not Detect) SARS-CoV-2 (PCR) (Not Detecte) Coronavirus NL63 (PCR) (Not Detect) Human Metapneumovir PCR (Not Detect) Influenza Type A (PCR) (Not Detect) Influenza Type B (PCR) (Not Detect) M. pneumoniae (PCR) (Not Detect) Parainfluenza 1 (PCR) (Not Detect) Parainfluenza 2 (PCR) (Not Detect) Parainfluenza 3 (PCR) (Not Detect) Parainfluenza 4 (PCR) (Not Detect) RSV (PCR) (Not Detect) Entero/Rhino (PCR) (Not Detect) Point of care testing: Urine Dip Bedside Urine Glucose Negative Bedside Urine Bilirubin - Negative Bedside Urine Ketone +++ 80 Urine Specific [place] 1.020 Bedside Urine Occult Blood +/- Bedside Urine pH 6 Bedside Urine Protein +/- 15 Bedside Urine Urobilinogen +/- 1mg Bedside Urine Nitrite - Negative Bedside Urine Leukocytes - Negative Esterase <Debo Mejia MD - Last Filed: 05/21/22 01:06> Lab Data Labs: Lab Results 05/20/22 05/20/22 05/20/22 Range/Units 18:30 18:35 18:35 WBC (4.5-11.0) X10^3/uL RBC (4.0-5.2) X10^6/uL Hgb (12.0-16.0) g/dL Hct (36-46) % MCV (80-100) fL MCH (26-34) PG MCHC (30-36) % RDW (11.6-14.8) % Plt Count (150-400) X10^3/uL Neut % (Auto) (50-75) % Lymph % (Auto) (25-40) % [place] % (Auto) (3-14) % Eos % (Auto) (2-4) % Baso % (Auto) (0-2) % Neut # (Auto) (6428-9315) /uL Lymph # (Auto) (4507-1475) /uL [place] # (Auto) (0-900) /uL Eos # (Auto) (0-450) /uL Baso # (Auto) (0-100) /uL Sodium (137-145) mmol/L Potassium (3.4-5.1) mmol/L Chloride (98-107) mmol/L Carbon Dioxide (22-32) mmol/L BUN (7-17) mg/dL Creatinine (0.52-1.04) mg/dL Estimated GFR (>60) mL/min BUN/Creatinine Ratio (6-22) Glucose (70-100) mg/dL Lactate (0.7-2.1) mmol/L Calcium (8.4-10.2) mg/dL Total Bilirubin (0.2-1.3) mg/dL AST (14-36) IU/L ALT (<35) IU/L Alkaline Phosphatase (38-126) U/L Total Protein (6.3-8.2) g/dL Albumin (3.5-5.0) g/dL Globulin (1.7-4.1) g/dL Albumin/Globulin Ratio (1.0-2.8) Lipase (23-300) U/L Ur Bilirubin Confirm Negative (Negative) Urine RBC 1-5/hpf (0-5/HPF) Urine WBC 1-5/hpf (0-5/HPF) Ur Squamous Epith Cells 5-10 /hpf H (0-5/HPF) Amorphous Sediment 1+ Urine Bacteria Few (2-10) H (None) Urine Mucus 1+ H (Negative) Ur Culture Indicated? Specimen cultured Chlamy pneumoniae PCR Not detected (Not Detect) Adenovirus (PCR) Not detected (Not Detect) B. pertussis DNA (PCR) Not detected (Not Detecte) B.parapertussis DNA PCR Not detected (Not Detecte) Coronavirus OC43 (PCR) Not detected (Not Detect) Coronavirus HKU1 (PCR) Not detected (Not Detect) Coronavirus 229E (PCR) Not detected (Not Detect) SARS-CoV-2 (PCR) Not detected (Not Detecte) Coronavirus NL63 (PCR) Not detected (Not Detect) Human Metapneumovir PCR Not detected (Not Detect) Influenza Type A (PCR) Not detected (Not Detect) Influenza Type B (PCR) Not detected (Not Detect) M. pneumoniae (PCR) Not detected (Not Detect) Parainfluenza 1 (PCR) Not detected (Not Detect) Parainfluenza 2 (PCR) Not detected (Not Detect) Parainfluenza 3 (PCR) Not detected (Not Detect) Parainfluenza 4 (PCR) Not detected (Not Detect) RSV (PCR) Not detected (Not Detect) Entero/Rhino (PCR) Not detected (Not Detect) 05/20/22 05/20/22 05/20/22 Range/Units 20:05 20:05 20:05 WBC 16.1 H (4.5-11.0) X10^3/uL RBC 4.73 (4.0-5.2) X10^6/uL Hgb 13.7 (12.0-16.0) g/dL Hct 40.6 (36-46) % MCV 85.8 (80-100) fL MCH 28.9 (26-34) PG MCHC 33.6 (30-36) % RDW 13.1 (11.6-14.8) % Plt Count 312 (150-400) X10^3/uL Neut % (Auto) 86.5 H (50-75) % Lymph % (Auto) 8.5 L (25-40) % [place] % (Auto) 4.4 (3-14) % Eos % (Auto) 0.0 L (2-4) % Baso % (Auto) 0.6 (0-2) % Neut # (Auto) 38123 H (3037-8124) /uL Lymph # (Auto) 1400 (8392-0410) /uL [place] # (Auto) 700 (0-900) /uL Eos # (Auto) 0 (0-450) /uL Baso # (Auto) 100 (0-100) /uL Sodium 135 L (137-145) mmol/L Potassium 4.1 (3.4-5.1) mmol/L Chloride 104 (98-107) mmol/L Carbon Dioxide 23 (22-32) mmol/L BUN 9 (7-17) mg/dL Creatinine 0.86 (0.52-1.04) mg/dL Estimated GFR > 60 (>60) mL/min BUN/Creatinine Ratio 10.5 (6-22) Glucose 137 H (70-100) mg/dL Lactate 1.4 (0.7-2.1) mmol/L Calcium 8.9 (8.4-10.2) mg/dL Total Bilirubin 1.9 H (0.2-1.3) mg/dL AST 24 (14-36) IU/L ALT 27 (<35) IU/L Alkaline Phosphatase 72 (38-126) U/L Total Protein 7.7 (6.3-8.2) g/dL Albumin 4.3 (3.5-5.0) g/dL Globulin 3.4 (1.7-4.1) g/dL Albumin/Globulin Ratio 1.3 (1.0-2.8) Lipase 32 (23-300) U/L Ur Bilirubin Confirm (Negative) Urine RBC (0-5/HPF) Urine WBC (0-5/HPF) Ur Squamous Epith Cells (0-5/HPF) Amorphous Sediment Urine Bacteria (None) Urine Mucus (Negative) Ur Culture Indicated? Chlamy pneumoniae PCR (Not Detect) Adenovirus (PCR) (Not Detect) B. pertussis DNA (PCR) (Not Detecte) B.parapertussis DNA PCR (Not Detecte) Coronavirus OC43 (PCR) (Not Detect) Coronavirus HKU1 (PCR) (Not Detect) Coronavirus 229E (PCR) (Not Detect) SARS-CoV-2 (PCR) (Not Detecte) Coronavirus NL63 (PCR) (Not Detect) Human Metapneumovir PCR (Not Detect) Influenza Type A (PCR) (Not Detect) Influenza Type B (PCR) (Not Detect) M. pneumoniae (PCR) (Not Detect) Parainfluenza 1 (PCR) (Not Detect) Parainfluenza 2 (PCR) (Not Detect) Parainfluenza 3 (PCR) (Not Detect) Parainfluenza 4 (PCR) (Not Detect) RSV (PCR) (Not Detect) Entero/Rhino (PCR) (Not Detect) Point of care testing: Urine Dip Bedside Urine Glucose Negative Bedside Urine Bilirubin - Negative Bedside Urine Ketone +++ 80 Urine Specific [place] 1.020 Bedside Urine Occult Blood +/- Bedside Urine pH 6 Bedside Urine Protein +/- 15 Bedside Urine Urobilinogen +/- 1mg Bedside Urine Nitrite - Negative Bedside Urine Leukocytes - Negative Esterase Imaging Data XR chest/abd: Radiologist's Impression: FINDINGS:? ? Surgical changes and devices:? Gastric band.? IUD in the pelvis. ? Chest:? Lungs are clear.? Heart size is normal.? No pleural effusions.? No pneumoperitoneum.? ? Abdomen:? Somewhat prominent bowel gas in the transverse colon.? Fecal residue is seen.? No dilated loops of small bowel are identified.? No suspicious calcifications.? Visualized solid organ contours appear normal.? ? Bones:? No suspicious bony lesions.? ? IMPRESSION:? No acute cardiopulmonary abnormality. Nonobstructive bowel gas pattern. ? ? ? Dictated by: Elmer Licea M.D. on 05/20/2022 at 19:31 ? ? CT scan - abdomen/pelvis: Radiologist's Impression: FINDINGS:? Image quality:? Excellent.? ? Lung bases:? Lung bases are clear. Heart:? No significant findings. ? ? ABDOMEN: Liver:? Unremarkable.? ? Gallbladder:? There is a gallstone noted in the gallbladder neck with mild gallbladder distention.? No evidence of gallbladder wall thickening or pericholecystic inflammation. Biliary ducts:? Unremarkable.? ? Pancreas:? Unremarkable.? ? Spleen:? Unremarkable.? ? Adrenal Glands:? There is an indeterminate 3.2 cm left adrenal hypodense nodule measuring approximately 38 Hounsfield units.? No right-sided adrenal nodule. Kidneys and Ureters:? There is a 6 mm obstructing stone identified in the left ureteropelvic junction which measures approximately 900 Hounsfield units.? There is mild-moderate left hydronephrosis with associated perinephric stranding.? Right kidney appears normal. ? Stomach and Bowel:? Gastric lap band noted.? Stomach is otherwise unremarkable.? Visualized small bowel and colon demonstrate no evidence for acute inflammatory changes or obstruction. Peritoneum:? No abnormal intraperitoneal fluid.? No free air.? ? Ventral Wall: ? No hernia.? Abdominal Nodes:? No retroperitoneal or mesenteric adenopathy by size criteria.? Vessels:? Aorta and inferior vena cava are normal in size.? Bones:? Unremarkable.? ? ? IMPRESSION:? ? 1. Obstructing 6 mm left ureteropelvic junction stone with associated moderate left hydronephrosis.? There is mild left perinephric stranding.? A concurrent infectious uropathy not excluded.? Recommend clinical and laboratory correlation. ? 2. Cholelithiasis without CT evidence for acute cholecystitis. ? 3. Indeterminate 3.2 cm left adrenal nodule.? Recommend dedicated outpatient CT or MRI of the abdomen (adrenal mass protocol) to further characterize.? ? ? Dictated by: Michael Barkley M.D. on 05/20/2022 at 21:29? [facility] Narrative Medical decision making narrative: 52-year-old woman with acute onset left upper quadrant pain at 9:00 a.m. this morning. Moderate leukocytosis, CT scan shows an obstructing 6 mm left ureteropelvic junction with associated moderate left hydronephrosis and perinephric stranding. No evidence of diverticulitis or pancreatitis. Given the leukocytosis and her pain concern is for pyelonephritis in the setting of an obstructing 6 mm stone on the left side. Will make sure lactic acid and blood cultures have been obtained and begin ceftriaxone while contacting Urology. [id number] Discussed with Dr Rubio, urology. Will accept patient pending bed availability with recognition that ureteral stent is next appropriate step. Requested calling transfer center. Will make sure CT has been sent to as well. Patient updated 1am ED to ED transfer to [facility]. Patient is updated. She is currently pain-free. Vital signs are stable, she is afebrile. Her is available to drive her to the [facility]. [employer] forms and all paperwork is filled out and sent with the couple along with very clear instru ctions and the destination identified on their maps cisco. Very clear instructions to remain NPO and should there be any issues whatsoever to make sure they contact our ER so we can assist in any way possible. Discharge Plan Departure Patient Disposition: [facility] Clinical Impression: Ureterolithiasis, Pyelonephritis Prescriptions: No Action aspirin 81 MG tablet,chewable 162 mg PRN (Reason: Pain, Moderate) Qty: 0 aloe vera 25 mg capsule PO Q DAY Qty: 0 amlodipine-benazepril 10-40 mg capsule 1 cap PO DAILY Referrals: Jose Padron MD [Primary Care Provider] -
[2022-05-20 19:12] LABS: Ictotest Urine Negative (Negative)
[2022-05-20 19:18] LABS: Amorphous Sediment Urine 1+; Bacteria Urine Few (2-10); Culture Indicated Urine Specimen Cultured; Mucus Urine 1+ (Negative); RBC Urine 1-5/HPF (0-5/HPF); Squamous Epithelial Cell Urine 5-10 /HPF (0-5/HPF); WBC Urine 1-5/HPF (0-5/HPF)
[2022-05-20 19:48] LABS: Adenovirus Not Detected (Not Detect); B. parapertussis Not Detected (Not Detecte); Bordetella pertussis Not Detected (Not Detecte); Chlamydophila pneumoniae Not Detected (Not Detect); Coronavirus 229E Not Detected (Not Detect); Coronavirus HKU1 Not Detected (Not Detect); Coronavirus NL 63 Not Detected (Not Detect); Coronavirus OC43 Not Detected (Not Detect); Human Metapneumovirus Not Detected (Not Detect); Human Rhinovirus/Enterovirus Not Detected (Not Detect); Influenza A Not Detected (Not Detect); Influenza B Not Detected (Not Detect); Mycoplasma pneumoniae Not Detected (Not Detect); Parainfluenza Virus 1 Not Detected (Not Detect); Parainfluenza Virus 2 Not Detected (Not Detect); Parainfluenza Virus 3 Not Detected (Not Detect); Parainfluenza Virus 4 Not Detected (Not Detect); Respiratory Syncytial Virus Not Detected (Not Detect); SARS- CoV-2 Not Detected (Not Detecte)
[2022-05-20 20:28] LABS: Add Manual Diff / Slide Review NO; Basophils Absolute Auto 100 /uL (0-100); Basophils Percent Auto 0.6 % (0-2); Eosinophils Absolute Auto 0 /uL (0-450); Hematocrit 40.6 % (36-46); Hemoglobin 13.7 g/dL (12.0-16.0); Lymphocytes Absolute Auto 1400 /uL (1100-4500); Lymphocytes Percent Auto 8.5 % (25-40); Mean Corpuscular HGB Conc 33.6 % (30-36); Mean Corpuscular Hemoglobin 28.9 PG (26-34); Mean Corpuscular Volume 85.8 fL (80-100); Monocytes Absolute Auto 700 /uL (0-900); Monocytes Percent Auto 4.4 % (3-14); Neutrophils Absolute Auto 13900 /uL (1500-7000); Neutrophils Percent Auto 86.5 % (50-75); Platelet Count 312 X10^3/uL (150-400); Red Blood Cell Count 4.73 X10^6/uL (4.0-5.2); Red Cell Distribution Width 13.1 % (11.6-14.8); White Blood Cell Count 16.1 X10^3/uL (4.5-11.0)
--- NOTE | 2022-05-20 20:34 | DI.CT.S_ITS ---
PROCEDURE: CT ABDOMEN W CON INDICATIONS: abd pain TECHNIQUE: After the administration of intravenous contrast, axial sections were acquired from the lung bases to the pubic symphysis. Coronal and sagittal reformats were performed. For radiation dose reduction, the following was used: automated exposure control, adjustment of mA and/or kV according to patient size. COMPARISON:[facility], CR, XR ACUTE ABDOMEN SERIES, 05/20/2022, 18:48. FINDINGS: Image quality: Excellent. Lung bases: Lung bases are clear. Heart: No significant findings. ABDOMEN: Liver: Unremarkable. Gallbladder: There is a gallstone noted in the gallbladder neck with mild gallbladder distention. No evidence of gallbladder wall thickening or pericholecystic inflammation. Biliary ducts: Unremarkable. Pancreas: Unremarkable. Spleen: Unremarkable. Adrenal Glands: There is an indeterminate 3.2 cm left adrenal hypodense nodule measuring approximately 38 Hounsfield units. No right-sided adrenal nodule. Kidneys and Ureters: There is a 6 mm obstructing stone identified in the left ureteropelvic junction which measures approximately 900 Hounsfield units. There is mild-moderate left hydronephrosis with associated perinephric stranding. Right kidney appears normal. Stomach and Bowel: Gastric lap band noted. Stomach is otherwise unremarkable. Visualized small bowel and colon demonstrate no evidence for acute inflammatory changes or obstruction. Peritoneum: No abnormal intraperitoneal fluid. No free air. Ventral Wall: No hernia. Abdominal Nodes: No retroperitoneal or mesenteric adenopathy by size criteria. Vessels: Aorta and inferior vena cava are normal in size. Bones: Unremarkable. IMPRESSION: 1. Obstructing 6 mm left ureteropelvic junction stone with associated moderate left hydronephrosis. There is mild left perinephric stranding. A concurrent infectious uropathy not excluded. Recommend clinical and laboratory correlation. 2. Cholelithiasis without CT evidence for acute cholecystitis. 3. Indeterminate 3.2 cm left adrenal nodule. Recommend dedicated outpatient CT or MRI of the abdomen (adrenal mass protocol) to further characterize. Dictated by: Michael Barkley M.D. on 05/20/2022 at 21:29 Approved by: Michael Barkley M.D. on 05/20/2022 at 21:36
[2022-05-20 20:41] LABS: Alanine Aminotransferase 27 IU/L (<35); Albumin 4.3 g/dL (3.5-5.0); Albumin Globulin Ratio 1.3 (1.0-2.8); Alkaline Phosphatase 72 U/L (38-126); Aspartate Aminotransferase 24 IU/L (14-36); BUN Creatinine Ratio 10.5 (6-22); Bilirubin Total 1.9 mg/dL (0.2-1.3); Blood Urea Nitrogen 9 mg/dL (7-17); Calcium 8.9 mg/dL (8.4-10.2); Carbon Dioxide 23 mmol/L (22-32); Chloride 104 mmol/L (98-107); Estimated Glomerular Filt Rate > 60 mL/min (>60); Globulin 3.4 g/dL (1.7-4.1); Glucose 137 mg/dL (70-100); HEMOLYSIS < 15 (0-50); Lipase 32 U/L (23-300); Potassium 4.1 mmol/L (3.4-5.1); Sodium 135 mmol/L (137-145); Total Protein 7.7 g/dL (6.3-8.2)
[2022-05-20] MEDS: HYDROMORPHONE 0.5 MG INJ IV (21:50)
[2022-05-20 22:35] LABS: Lactate (Lactic Acid) 1.4 mmol/L (0.7-2.1)
[2022-05-20] MEDS: SODIUM CHLORIDE 0.9% 1,000 ML 1000 ML IV (22:36)
[2022-05-20] MEDS: KETOROLAC 30 MG/ML VIAL 15 MG IV (22:36)
[2022-05-20] MEDS: cefTRIAXone 2,000 MG in SODIUM CHLORIDE 0.9% 100 ML 200 MG IV (23:05)
[2022-05-20 23:10] VITALS: PULSE 78; O2SAT 98
[2022-05-20 23:11] VITALS: BP 127/69; PULSE 76; O2SAT 98
[2022-05-20 23:30] VITALS: PULSE 76; O2SAT 97
[2022-05-21 00:01] VITALS: PULSE 82; O2SAT 98
[2022-05-21 00:30] VITALS: PULSE 78; O2SAT 95
[2022-05-21 00:53] VITALS: BP 128/73; PULSE 80; O2SAT 98
[2022-05-21 00:55] VITALS: BP 128/73; PULSE 79; TEMP 36.7; O2SAT 98
[2022-05-21 01:00] VITALS: PULSE 77; RESP 18; O2SAT 98
[2022-05-21 01:30] VITALS: PULSE 74; O2SAT 97
== END 2022-05-21 02:00 | disposition short-term general hospital (02) ==
PROVIDERS: Physician Assistant Medical; Emergency Provider Emergency Medicine; PCP Internal Medicine
DX: N20.1 Calculus of ureter (principal); N12 Tubulo-interstitial nephritis, not specified as acute or chronic; Z20.822 Contact with and (suspected) exposure to COVID-19
CPT/HCPCS: 36415; 74022; 74160; 80053; 81003; 81015; 83605; 83690; 85025; 87040; 87086; 87633; 96361; 96374; 96375; 99284; J0696; J1170; J1885; Q9967

== ENCOUNTER → 2022-06-02 13:15 | Outpatient (CLI) | payer OTHER, SELFPAY ==
--- NOTE | 2022-06-02 | DI.CT.S_ITS ---
PROCEDURE: CT ABDOMEN ADRENAL PROTOCOL INDICATIONS: Benign neoplasm of left adrenal gland TECHNIQUE: Noncontrast 3 mm thick sections acquired from the diaphragms to the iliac crests. After the administration of intravenous contrast, 3 mm thick venous-phase and 15-minute delayed images acquired from the diaphragms to the iliac crests. For radiation dose reduction, the following was used: automated exposure control, adjustment of mA and/or kV according to patient size. COMPARISON: [facility], CT, CT ABDOMEN W CON, 05/20/2022, 21:03. FINDINGS: Image quality: Excellent. Lung bases: Lung bases are clear. Heart size is normal. Adrenal glands: Left adrenal nodule measuring 3.2 x 3.2 cm, (3/41). Noncontrast phase: 0 Hounsfield units. Portal venous phase: 27 Hounsfield units. Delayed phase: 6 Hounsfield units. Absolute Washout: 78 %. Absolute washout of 60% or higher is consistent with an adenoma. Relative Washout: 78 %. Relative washout of 40% or higher is consistent with an adenoma. No right adrenal nodule. Solid organs: Liver is prominent in size and enhancement. Gallbladder demonstrates small gallstones. . Biliary system is non dilated. Pancreas enhances normally. Spleen is normal in size and enhancement. Kidneys are normal in size and enhancement. No hydronephrosis. Left today ureteral stent is partially visualized and is coiled in the left renal pelvis. Left inferior pole calyx calculus measuring 0.6 cm, (4/77), previously located in the proximal left ureter. Peritoneum and bowel: Gastric band. Unenhanced bowel loops are normal in caliber and wall thickness. Normal appendix. No free fluid or air. Nodes and vessels: No retroperitoneal or mesenteric adenopathy by size criteria. Aorta and inferior vena cava are normal in size. Miscellaneous: No ventral hernias. Bones: No suspicious bony lesions. No vertebral body compression fractures. IMPRESSION: 1. Left adrenal nodule measuring 3.2 cm is consistent with a benign adenoma. 2. Left ureteral stent in the left renal collecting system. The previously seen left ureteral calculus is now located at the inferior calyx. 3. Gallstones. Dictated by: Elmer Licea M.D. on 06/02/2022 at 14:54 Approved by: Elmer Licea M.D. on 06/02/2022 at 15:02
== END ==
PROVIDERS: PCP Internal Medicine; Referring Provider Internal Medicine; Visit Provider Internal Medicine
DX: D35.02 Benign neoplasm of left adrenal gland (principal); K80.20 Calculus of gallbladder without cholecystitis without obstruction; Z96.0 Presence of urogenital implants
CPT/HCPCS: 74170

== ENCOUNTER → 2022-06-21 11:25 | Outpatient (CLI) | payer OTHER, SELFPAY ==
--- NOTE | 2022-06-21 11:27 | DI.RAD.S_ITS ---
PROCEDURE: XR KUB INDICATIONS: Kidney stone TECHNIQUE: One view of the abdomen acquired. COMPARISON: [facility], CR, XR ACUTE ABDOMEN SERIES, 05/20/2022, 18:48. FINDINGS: Surgical changes and devices: Left nephroureteral stent present. Laparoscopic gastric band present. Bowel: Bowel gas pattern is normal. Soft tissues: There is a calcification in the left pelvis along the course of the stent which was not previously imaged and may be a phlebolith. It measures approximately 3 mm. No other definite calcifications. Left renal shadows partially obscured by bowel gas. Bones: No suspicious bony lesions. IMPRESSION: 1. Possible left distal ureteral calcification versus phlebolith. Dictated by: Lawanda Torres M.D. on 06/21/2022 at 13:53 Approved by: Lawanda Torres M.D. on 06/21/2022 at 13:57
== END ==
PROVIDERS: PCP Internal Medicine; Referring Provider Specialist; Visit Provider Specialist
DX: N12 Tubulo-interstitial nephritis, not specified as acute or chronic (principal); N20.1 Calculus of ureter; N23 Unspecified renal colic; Z96.0 Presence of urogenital implants
CPT/HCPCS: 74018; 99215

== ENCOUNTER → 2022-06-27 10:26 | Outpatient (CLI) | payer OTHER, SELFPAY ==
--- NOTE | 2022-06-27 10:27 | DI.RAD.S_ITS ---
PROCEDURE: XR KUB INDICATIONS: Kidney stone TECHNIQUE: One view of the abdomen acquired. COMPARISON: [facility], , XR KUB, 06/21/2022, 11:29. FINDINGS: Bowel: Bowel gas pattern is normal. Soft tissues: Lap band and port again noted. There is a double-J left ureteral stent in place, and a 3 mm calcification near the distal ureter is again noted, similar to the prior. Bones: No suspicious bony lesions. IMPRESSION: Rounded calcification adjacent to the distal left ureteral stent remains stable from prior Approved by: Jase Michael M.D. on 06/27/2022 at 14:16
== END ==
PROVIDERS: PCP Internal Medicine; Referring Provider Specialist; Visit Provider Specialist
DX: N20.1 Calculus of ureter (principal); Z96.0 Presence of urogenital implants
CPT/HCPCS: 74018

== ENCOUNTER → 2022-07-03 09:13 | Outpatient (CLI) | payer OTHER, SELFPAY ==
[2022-07-03 11:02] LABS: Appearance Urine UA CLEAR; Bilirubin Urine UA NEGATIVE (NEGATIVE); Color Urine UA YELLOW; Glucose Urine UA NEGATIVE (Negative); Ketones Urine UA NEGATIVE (NEGATIVE); Leukocyte Esterase Urine UA 1+ (NEGATIVE); Nitrite Urine UA NEGATIVE (Negative); Occult Blood Urine UA 3+ (Negative); Protein Urine UA TRACE (Negative); Urobilinogen Urine UA 0.2 E.U./dL (0.2)
[2022-07-03 11:34] LABS: Cortisol AM (Before 10AM) 1.51 ug/dL (4.46-22.7)
[2022-07-03 12:01] LABS: Bacteria Urine Many (>30); Culture Indicated Urine Specimen Cultured; Mucus Urine 1+ (Negative); RBC Urine 30-100/HPF (0-5/HPF); Squamous Epithelial Cell Urine 1-5 /HPF (0-5/HPF); WBC Urine 5-10/HPF (0-5/HPF)
[2022-07-10 12:36] LABS: Aldosterone/Renin Activity Rat <.1 (0.0-30.0); Plama Renin, LC/MS/MS 14.975 ng/mL/hr (0.167-5.380)
[2022-07-11 11:00] LABS: Metanephrine,Plasma 24.7 pg/mL (0.0-88.0)
== END ==
PROVIDERS: Specialist; PCP Internal Medicine; Referring Provider Surgery; Visit Provider Surgery
DX: E27.8 Other specified disorders of adrenal gland (principal); N20.0 Calculus of kidney; N20.1 Calculus of ureter
CPT/HCPCS: 36415; 81001; 82088; 82533; 83835; 84244; 87086

== ENCOUNTER 2022-07-07 07:57 | Day surgery (SDC) | payer OTHER, SELFPAY ==
[2022-07-05 09:49] VITALS: BMI 43.5
--- NOTE | 2022-07-07 | DI.RAD.S_ITS ---
PROCEDURE: XR KUB INDICATIONS: Left renal calculus TECHNIQUE: One view of the abdomen acquired. COMPARISON: [facility], CR, XR ACUTE ABDOMEN SERIES, 05/20/2022, 18:48. [facility], CT, CT ABDOMEN W CON, 05/20/2022, 21:03. [facility], CT, CT ABDOMEN ADRENAL PROTOCOL, 06/02/2022, 13:22. [facility], CR, XR KUB, 06/27/2022, 11:32. [facility], CR, XR KUB, 06/21/2022, 11:29. FINDINGS: Surgical changes and devices: IUD in the pelvis. Left ureteral stent projects in the expected locations. Catheter in the upper abdomen partially visualized. Bowel: Bowel gas pattern is normal. Soft tissues: Presumed phlebolith in the pelvis is unchanged since abdominal radiographs 05/20/2022. No suspicious abdominal calcifications. Visualized solid organ contours appear normal in size. Bones: No suspicious bony lesions. IMPRESSION: Left renal stent projects in the expected location. Calcification in the left pelvis is unchanged. This is felt to represent a phlebolith and was present on 05/20/2022. Dictated by: Elmer Licea M.D. on 07/07/2022 at 8:54 Approved by: Elmer Licea M.D. on 07/07/2022 at 9:00
[2022-07-07] MEDS: LACTATED RINGERS 1,000 ML 21 ML IV (08:09)
--- NOTE | 2022-07-07 08:26 | PM.PREOP ---
Pre-operative Note Interval Note History & Physical reviewed/Exam performed by Physician: Yes Changes to H&P: No
[2022-07-07 08:33] VITALS: BP 129/71; PULSE 111; RESP 20; TEMP 36.4; O2SAT 98; BMI 43.5
--- NOTE | 2022-07-07 09:02 | SUR.OPER ---
Supine on ESWL table, head on pillow, arms padded and tucked at sides, legs uncrossed. Pt positioned per direction and supervision of Dr Brumfield.
[2022-07-07] MEDS: CEFAZOLIN 3 GM IN 0.9 % NACL 3 GM/100 ML PLAST..BAG IV (09:06)
[2022-07-07 09:57] VITALS: BP 135/83; PULSE 78; RESP 15; TEMP 36.4; O2SAT 99
--- NOTE | 2022-07-07 09:59 | P.OP_ITS ---
Operative Date/Time/Diagnoses Date of procedure: 07/07/22 Time of procedure: 09:59 Pre-op diagnosis: 1. 6 mm left renal calculus. 2. History of left renal colic. 3. Retained left ureteral stent. Post-op diagnosis: same Procedure & Clinicians Procedure: 1. Left extracorporeal shockwave lithotripsy (maximal power level 7.5 x 2000 shocks). 2. Cystoscopy/removal left ureteral stent. Same procedure as scheduled: Yes Indications: 1. 6 mm left renal calculus. 2. History of left renal colic. 3. Retained left ureteral stent. Surgeon: Lizeth Brumfield Anesthesia Type: General Operative Notes Findings: 1. Index calculus identified within the projection of the proximal coil of the left ureteral stent. Closure Type: not applicable Specimen(s): none sent Estimated Blood Loss (mL): 0 Blood products transfused: none Procedure in detail: The patient was positioned in supine was administered general anesthesia. The above-described calculus was then localized in the X, Y, and Z plane. Lithotripsy was then commenced at minimal power level for a total of 200 shocks. A 2 minute pause was then conducted. Lithotripsy was then resumed and re localization of the stone was conducted periodically throughout the treatment. It was mobile and did move into the superior pole after the initial 500 shocks, requiring relocated cessation. Fragmentation was monitored as needed fluoroscopically throughout the case. A 2000 shocks there was excellent evidence of stone comminution. The patient was then repositioned in semi lithotomy, and the lower abdomen, genitalia, and groin were then prepped and draped in sterile fashion. A 22 [place] panendoscope was then passed the lower urinary tract. Using an alligator foreign body grasper, the distal end of the left ureteral stent was engaged and the scope and secured left ureteral stent were then withdrawn and removed en tirely from the urinary tract. The patient was then repositioned in supine, was awakened, was transferred to [facility], and then transported to recovery in stable condition. Complications: none Post-operative Condition: stable Disposition: PACU Plan for aftercare: Discharge home.
[2022-07-07 10:04] VITALS: BP 125/60; PULSE 82; RESP 16; O2SAT 99
[2022-07-07] MEDS: FUROSEMIDE 20 MG/2 ML VIAL IV (10:07)
[2022-07-07 10:09] VITALS: BP 130/78; PULSE 77; RESP 18; O2SAT 98
[2022-07-07 10:15] VITALS: BP 131/79; PULSE 77; RESP 16; O2SAT 96
[2022-07-07 10:28] VITALS: BP 129/78; PULSE 85; RESP 12; O2SAT 98
--- NOTE | 2022-07-07 10:41 | SUR.PHASEII ---
to BR with strainer, voided, got dressed. DC instructions gone over. all belongings with patient
== END 2022-07-07 10:52 | disposition home or self-care (01) ==
PROVIDERS: PCP Internal Medicine; Referring Provider Specialist; Visit Provider Specialist
PROC: (CPT 50590; principal; 2022-07-07 09:15)
PROC: (CPT 50590; 2022-07-07 09:15)
DX: N20.0 Calculus of kidney (principal); Z46.6 Encounter for fitting and adjustment of urinary device
CPT/HCPCS: 50590; 74018; 82962; J0690; J1940; J2405; J2704; J3010

== ENCOUNTER → 2022-07-18 12:32 | Outpatient (ROUT) | payer OTHER, SELFPAY ==
[2022-07-21 12:35] LABS: Ca oxalate monohydr 100 % (.); Size 4x4 mm (.)
== END ==
PROVIDERS: PCP Internal Medicine; Visit Provider Specialist
DX: N20.0 Calculus of kidney (principal)
CPT/HCPCS: 82365

== ENCOUNTER → 2022-10-26 10:51 | Outpatient (CLI) | payer OTHER, SELFPAY ==
[2022-10-26 12:07] LABS: Calcium 9.3 mg/dL (8.4-10.2); Uric Acid 4.1 mg/dL (2.5-6.2)
[2022-10-29 07:48] LABS: Calcium 9.5 mg/dL (8.7-10.2); Parathyroid Hormone, Intact 42 pg/mL (15-65)
== END ==
PROVIDERS: PCP Internal Medicine; Referring Provider Specialist; Visit Provider Specialist
DX: Z87.442 Personal history of urinary calculi (principal); N20.0 Calculus of kidney; N20.1 Calculus of ureter
CPT/HCPCS: 36415; 82310; 83970; 84550

== ENCOUNTER → 2023-04-09 12:46 | Outpatient (CLI) | payer OTHER, SELFPAY ==
--- NOTE | 2023-04-09 12:48 | DI.CT.S_ITS ---
PROCEDURE: CT HEAD/BRAIN WO CON INDICATIONS: Other headache syndrome TECHNIQUE: Noncontrast 4.5 mm thick angled axial sections acquired from the foramen magnum to the vertex, with coronal and sagittal reformats. For radiation dose reduction, the following was used: automated exposure control, adjustment of mA and/or kV according to patient size. COMPARISON: [facility], CT, HEAD WITHOUT CONTRAST, 05/10/2017, 22:38. FINDINGS: Image quality: Excellent. CSF spaces: Basal cisterns are patent. No extra-axial fluid collections. Ventricles are normal in size and shape. Brain: No midline shift. No intracranial masses or hemorrhage. Wheeler-white matter interface is normal. Skull and face: Calvarium and visualized facial bones are intact, without suspicious lesions. Sinuses: Visualized sinuses and mastoids are clear. IMPRESSION: Normal CT of the brain Approved by: Jase Michael M.D. on 04/09/2023 at 15:51
== END ==
PROVIDERS: PCP Internal Medicine; Referring Provider Internal Medicine; Visit Provider Internal Medicine
DX: G44.89 Other headache syndrome (principal)
CPT/HCPCS: 70450

== ENCOUNTER → 2023-05-31 14:59 | Outpatient (CLI) | payer OTHER, SELFPAY ==
--- NOTE | 2023-05-31 | DI.MRI.S_ITS ---
PROCEDURE: MR HIP RT WO CON INDICATIONS: LOW BACK PAIN, SCIATICA TECHNIQUE: Noncontrast coronal T1 spin echo and STIR through the bony pelvis. Coronal and axial T2 fast spin echo with fat saturation, sagittal T1 spin echo, and oblique axial T2 fast spin echo with fat saturation through the hip. COMPARISON: None. FINDINGS: Image quality: Excellent. Bones and joints: Mild bilateral hip joint osteoarthritic changes are seen with superior joint space narrowing and subchondral sclerosis. No marrow edema. No intraosseous lesions or fractures. No avascular necrosis of the femoral heads. The visualized lower lumbar spine appears normally aligned. Tendons and ligaments: Distal right gluteus medius and minimus tendinosis at their insertion on greater trochanter is seen. The nearby proximal iliotibial band also appears intact. The iliopsoas tendon appears intact, without adjacent bursal fluid collections or evidence for impingement syndrome. Tendinosis is also seen involving right hamstring tendon origins at ischial tuberosity. Labrum and cartilage: The acetabular labrum appears intact in the absence of intra-articular contrast. Cartilage surface of the femoral head appears of normal thickness. The alpha angle of the femur is within normal limits at less than 55 degrees. Soft tissues: Visualized muscles demonstrate normal bulk and internal signal. Quadratus femoris muscle demonstrates no internal edema to suggest ischiofemoral impingement. The proximal sciatic neurovascular bundle appears normal adjacent to the hamstring tendons. No free pelvic fluid. Bladder wall thickness is normal. Genitourinary structures and bowel loops appear normal where visualized. IMPRESSION: 1. Mild right hip joint osteoarthritis. No pelvic or hip fracture. No evidence of avascular necrosis. 2. Distal right gluteus medius and minimus tendinosis. Tendinosis involving right hamstring tendon origins at ischial tuberosity. No other muscle or tendon signal abnormalities. 3. No gross focal labral tear. Dictated by: Jaret Hernandez M.D. on 05/31/2023 at 16:58 Approved by: Jaret Hernandez M.D. on 05/31/2023 at 17:02
--- NOTE | 2023-05-31 | DI.MRI.S_ITS ---
PROCEDURE: MR HIP LT WO CON INDICATIONS: LOW BACK PAIN, SCIATICA TECHNIQUE: Noncontrast coronal T1 spin echo and STIR through the bony pelvis. Coronal and axial T2 fast spin echo with fat saturation, sagittal T1 spin echo, and oblique axial T2 fast spin echo with fat saturation through the hip. COMPARISON: None. FINDINGS: Image quality: Excellent. Bones and joints: Mild bilateral hip joint osteoarthritic changes are seen with superior joint space narrowing and subchondral sclerosis. No intraosseous lesions or fractures. No avascular necrosis of the femoral heads. The visualized lower lumbar spine appears normally aligned. Tendons and ligaments: Distal left gluteus medius and minimus tendinosis is seen. The nearby proximal iliotibial band also appears intact. The iliopsoas tendon appears intact, without adjacent bursal fluid collections or evidence for impingement syndrome. Tendinosis involving hamstring tendon origins at left ischial tuberosity is also seen. Labrum and cartilage: The acetabular labrum appears intact in the absence of intra-articular contrast. Cartilage surface of the femoral head appears of normal thickness. The alpha angle of the femur is within normal limits at less than 55 degrees. Soft tissues: Visualized muscles demonstrate normal bulk and internal signal. Quadratus femoris muscle demonstrates no internal edema to suggest ischiofemoral impingement. The proximal sciatic neurovascular bundle appears normal adjacent to the hamstring tendons. No free pelvic fluid. Bladder wall thickness is normal. Genitourinary structures and bowel loops appear normal where visualized. Small right ovarian cyst is noted measures 2.1 x 1.7 cm in size. IMPRESSION: 1. Symmetric appearing mild bilateral hip joint osteoarthritis. No acute pelvic or hip fracture. No evidence of avascular necrosis. 2. Distal left gluteus medius and minimus tendinosis. Tendinosis involving left hamstring tendon origins at ischial tuberosity. No other muscle or tendon signal abnormalities are seen. 3. No evidence of gross left hip labral tear. 4. Incidentally note small right ovarian cyst. Non urgent outpatient pelvic ultrasound follow-up is recommended. Dictated by: Jaret Hernandez M.D. on 05/31/2023 at 17:02 Approved by: Jaret Hernandez M.D. on 05/31/2023 at 17:04
--- NOTE | 2023-05-31 15:00 | DI.MRI.S_ITS ---
PROCEDURE: MR LUMBAR SPINE WO CON INDICATIONS: LOW BACK PAIN / SCIATICA TECHNIQUE: Noncontrast sagittal T1 spin echo and T2 fast echo, sagittal STIR, and T2 fast spin echo through the lumbar spine. In cases with scoliosis, additional coronal T2 fast spin echo may be performed. COMPARISON: [facility], , L-SPINE WITHOUT CONTRAST, 04/11/2016, 18:18. FINDINGS: Image quality: Excellent. Alignment and Curvature: There is trace L4-5 anterolisthesis which is new when compared with the prior MRI dated April 11, 2016. Spinal alignment is otherwise normal. Bone Marrow: Marrow is of normal overall signal. No acute vertebral body compression fractures. Spinal Cord: Conus medullaris terminates at the L1 level. Visualized cord demonstrates normal signal and size. Paraspinous Soft Tissues: No paravertebral masses. T12-L1: Normal appearance. L1-L2: Normal appearance. L2-L3: Disc height is preserved. Mild facet ligamentum flavum hypertrophy. No canal stenosis. No foraminal stenosis. Findings are unchanged from the study dated April 11, 2016. L3-L4: Disc height is preserved. Moderate facet ligamentum flavum hypertrophy, unchanged. No canal stenosis. No foraminal stenosis. L4-L5: Mild disc desiccation and height loss. Broad-based disc bulge. Severe facet ligamentum flavum hypertrophy. Severe canal stenosis. Mild bilateral foraminal stenosis. The degree of foraminal stenosis, canal stenosis and facet sclerosis is increased from the prior study. L5-S1: Disc height is preserved. Severe facet ligamentum flavum hypertrophy. No canal stenosis. No foraminal stenosis. IMPRESSION: 1. New, trace L4-5 anterolisthesis when compared with the 2015 study. 2. Increased facet sclerosis and ligamentum flavum hypertrophy at L4-5 with resultant severe canal stenosis and slightly increased foraminal narrowing, which is mild in degree. 3. No other significant canal stenosis or foraminal narrowing of the lumbar spine. Dictated by: Scarlett Jefferson M.D. on 05/31/2023 at 17:21 Approved by: Scarlett Jefferson M.D. on 05/31/2023 at 17:26
== END ==
LOC: MRI 14:59
PROVIDERS: PCP Internal Medicine; Referring Provider Internal Medicine; Visit Provider Internal Medicine
DX: M54.30 Sciatica, unspecified side (principal); M16.0 Bilateral primary osteoarthritis of hip; M47.816 Spondylosis without myelopathy or radiculopathy, lumbar region; M48.061 Spinal stenosis, lumbar region without neurogenic claudication; M54.50 Low back pain, unspecified; N83.201 Unspecified ovarian cyst, right side
CPT/HCPCS: 72148; 73721

== ENCOUNTER → 2023-07-23 14:11 | Outpatient (CLI) | payer OTHER, SELFPAY ==
--- NOTE | 2023-07-23 | DI.US.S_ITS ---
PROCEDURE: US PELVIC COMPLETE INDICATIONS: Unspecified ovarian cyst, right side TECHNIQUE: Real-time scanning was performed of the pelvic organs, with image documentation. Additional endovaginal scanning was necessary due to incomplete visualization of the adnexal and endometrial structures by transabdominal scanning. COMPARISON: [facility], MR, MR HIP LT WO CON, 05/31/2023, 15:33. FINDINGS: Uterus: Uterus is anteverted and normal in size at 8.9 x 0.1 x 5.2 cm. The myometrium is homogeneous. The endometrium measures 10 mm combined thickness. IUD in appropriate position. Ovaries: The right ovary measures 2.7 x 1.7 x 1.6 cm, with a calculated ovarian volume of 3.8 cc. The left ovary measures 2.9 x 2.7 x 2.2 cm, with a calculated ovarian volume of 9 cc. Prominent left ovarian follicle is present measuring 2.1 cm. It is noted bilateral cysts/prominent follicles were present prior MRI although the largest was documented on the right. No definitive right ovarian cyst is identified on current exam. Other: No pathologic free abdominal or pelvic fluid. IMPRESSION: Prominent left ovarian follicle/small cyst as above. We strive to produce accurate, complete, and clear reports of imaging services. To assist us in improving patient care, this report was composed using standard report templates and voice recognition software. Therefore, it may contain abnormal punctuation, insertions and/or omissions. Occasional wrong-word or sound-alike substitutions may occur. Though we review the report and make efforts to correct it, we do recommend that the report be read carefully in proper context to recognize any text inaccuracies. Dictated by: Leilani Garcia M.D. on 07/24/2023 at 14:37 Approved by: Leilani Garcia M.D. on 07/24/2023 at 14:48
== END ==
LOC: US 14:11
PROVIDERS: PCP Internal Medicine; Referring Provider Internal Medicine; Visit Provider Internal Medicine
DX: N83.202 Unspecified ovarian cyst, left side (principal); N83.201 Unspecified ovarian cyst, right side
CPT/HCPCS: 76856

== ENCOUNTER → 2023-10-10 07:41 | Outpatient (CLI) | payer OTHER, SELFPAY ==
[2023-10-10 09:11] LABS: Hemoglobin A1C% w Est Avg Glu 5.4 % (4.0-6.0)
[2023-10-10 09:23] LABS: Cholesterol 140 mg/dL (140-199); HDL Cholesterol 46 mg/dL (40-60); LDL Cholesterol Calculated 57 mg/dL (<100); Triglycerides 184 mg/dL (35-150)
[2023-10-10 09:55] LABS: Cortisol AM (Before 10AM) 2.05 ug/dL (4.46-22.7)
[2023-10-10 10:09] LABS: Creatinine Urine Random 70.8 mg/dL
[2023-10-10 10:14] LABS: Microalbumi Creatinin Ratio Ur 8.4 ug/mg CR (<30); Microalbumin Urine Random 0.6 mg/dL (0-1.6)
== END ==
PROVIDERS: PCP Internal Medicine; Referring Provider Student in an Organized Health Care Education/Training Program; Visit Provider Student in an Organized Health Care Education/Training Program
DX: E11.69 Type 2 diabetes mellitus with other specified complication (principal)
CPT/HCPCS: 36415; 80061; 82043; 82533; 82570; 82627; 83036; 83835

== ENCOUNTER → 2024-06-10 14:28 | Outpatient (CLI) | payer OTHER, SELFPAY ==
--- NOTE | 2024-06-10 14:33 | DI.RAD.S_ITS ---
PROCEDURE: XR HIP W PEL IF DONE RT 2V INDICATIONS: Other specified arthritis, right hip TECHNIQUE: AP pelvis with lateral view(s) of the right hip(s). COMPARISON: None. FINDINGS: Bones: No fractures or dislocations. Pelvic ring appears intact. No suspicious bony lesions. Mild bilateral hip osteoarthritis with osseous hypertrophy. Soft tissues: The visualized bowel gas pattern is normal. No suspicious soft tissue intrauterine device. calcifications. IMPRESSION: No acute bony abnormality. Dictated by: Shanelle Stanley MD, PhD on 06/10/2024 at 15:23 Approved by: Shanelle Stanley MD, PhD on 06/10/2024 at 15:24
--- NOTE | 2024-06-10 14:33 | DI.RAD.S_ITS ---
PROCEDURE: XR LUMBAR SPINE 2-3V INDICATIONS: Radiculopathy, lumbar region TECHNIQUE: 3 views of the lumbar spine were acquired. COMPARISON: None. FINDINGS: Bones: 5 [id number] vertebrae are present. There is mild, approximately 7 millimeters of L4-L5 degenerative anterolisthesis.. No vertebral body compression fractures. No suspicious bony lesions. Mild degenerative disc changes throughout the lumbar spine. Mild to moderate L4-L5 and L5-S1 facet arthropathy. Soft tissues: Overlying bowel gas pattern is normal. No suspicious soft tissue calcifications. Right upper quadrant medical cost consultant. Intrauterine device. IMPRESSION: Multilevel degenerative disc disease. Multilevel facet arthropathy. No fracture. No acute osseous lesion. If symptoms and/or clinical suspicion for pathology persists, evaluation with MRI should be considered for further assessment. Dictated by: Shanelle Stanley MD, PhD on 06/10/2024 at 15:21 Approved by: Shanelle Stanley MD, PhD on 06/10/2024 at 15:23
== END ==
LOC: RAD 14:31
PROVIDERS: PCP Internal Medicine; Referring Provider Internal Medicine; Visit Provider Internal Medicine
DX: M51.16 Intervertebral disc disorders with radiculopathy, lumbar region (principal); M47.26 Other spondylosis with radiculopathy, lumbar region; M47.27 Other spondylosis with radiculopathy, lumbosacral region; M13.851 Other specified arthritis, right hip
CPT/HCPCS: 72100; 73502

== ENCOUNTER → 2024-08-14 16:14 | Outpatient (CLI) | payer OTHER, SELFPAY ==
--- NOTE | 2024-08-14 16:15 | DI.US.S_ITS ---
PROCEDURE: US ABDOMEN LIMITED INDICATIONS: ENLARGED LYMPH NODE LT GROIN TECHNIQUE: Real-time focused scanning was performed of the abdomen, with image documentation. COMPARISON: [facility], US, US ABDOMEN LIMITED, 05/12/2022, 9:31. FINDINGS/IMPRESSION: Targeted ultrasound of the left groin demonstrates a fat containing, partially capsulated mass without suspicious soft tissue measuring 4.7 x 2.0 x 2.1 cm. 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 If there is a history of rapid growth or pain, ultrasound-guided biopsy should be considered to exclude liposarcoma. Dictated by: Alvarez Quintero M.D. on 08/15/2024 at 10:42 Approved by: Alvarez Quintero M.D. on 08/15/2024 at 10:44
== END ==
PROVIDERS: PCP Internal Medicine; Referring Provider Internal Medicine; Visit Provider Internal Medicine
DX: R22.2 Localized swelling, mass and lump, trunk (principal); R59.1 Generalized enlarged lymph nodes
CPT/HCPCS: 76705

== ENCOUNTER → 2024-10-08 10:45 | Outpatient (CLI) | payer OTHER, SELFPAY ==
[2024-10-08 12:26] LABS: Add Manual Diff / Slide Review NO; Basophils Absolute Auto 100 /uL (0-100); Basophils Percent Auto 0.6 % (0-2); Eosinophils Absolute Auto 200 /uL (0-450); Eosinophils Percent Auto 1.4 % (2-4); Hematocrit 41.4 % (36-46); Hemoglobin 14.3 g/dL (12.0-16.0); Lymphocytes Absolute Auto 2700 /uL (1100-4500); Lymphocytes Percent Auto 24.4 % (25-40); Mean Corpuscular HGB Conc 34.5 % (30-36); Mean Corpuscular Hemoglobin 30.6 PG (26-34); Mean Corpuscular Volume 88.4 fL (80-100); Monocytes Absolute Auto 600 /uL (0-900); Monocytes Percent Auto 5.1 % (3-14); Neutrophils Absolute Auto 7600 /uL (1500-7000); Neutrophils Percent Auto 68.5 % (50-75); Platelet Count 310 X10^3/uL (150-400); Red Blood Cell Count 4.68 X10^6/uL (4.0-5.2); Red Cell Distribution Width 13.6 % (11.6-14.8)
[2024-10-08 12:32] LABS: Iron 82 ug/dL (37-170)
[2024-10-08 12:37] LABS: C-Reactive Protein Quant < 0.5 mg/dL (<1.0); Cholesterol 180 mg/dL (140-199); HDL Cholesterol 45 mg/dL (40-60); LDL Cholesterol Calculated 94 mg/dL (<100); Triglycerides 207 mg/dL (35-150)
[2024-10-08 12:45] LABS: Percent Iron Saturation 27 % (15-50); Total Iron Binding Capacity 302 ug/dL (265-497)
[2024-10-08 12:54] LABS: Free T3, Triiodothyronine Free 2.82 pg/mL (2.77-5.27); Free T4, Direct Thyroxine 0.79 ng/dL (0.78-2.19)
[2024-10-08 13:07] LABS: Cancer Antigen 125 16.8 U/mL (0-35); Cortisol Random 6.49 ug/dL; Thyroid Stimulating Hormone 1.85 uIU/mL (0.47-4.68)
[2024-10-08 13:10] LABS: Ferritin 86 ng/mL (11-264)
[2024-10-08 13:18] LABS: Hemoglobin A1C% w Est Avg Glu 4.9 % (4.0-6.0)
[2024-10-08 13:27] LABS: Vitamin B12 630 pg/mL (239-931)
[2024-10-08 16:03] LABS: Vitamin D 25 Hydroxy (D3) 41.3 ng/mL (30.0-100.0)
[2024-10-08 16:14] LABS: Follicle Stimulating Hormone 5.24 mIU/mL; Luteinizing Hormone 11.1 mIU/mL; Progesterone, Total 0.84 ng/mL
[2024-10-08 16:29] LABS: Estradiol, Total 176.6 pg/mL
[2024-10-09 01:12] LABS: Homocysteine 9.1 umol/L (0.0-14.5)
[2024-10-12 11:36] LABS: Dehydroepiandrosterone (DHEA) 232 ng/dL (21-402)
== END ==
PROVIDERS: PCP Internal Medicine; Referring Provider Nurse Practitioner Family; Visit Provider Nurse Practitioner Family
DX: E34.8 Other specified endocrine disorders (principal)
CPT/HCPCS: 36415; 80061; 80299; 82306; 82533; 82607; 82627; 82670; 82728; 83001; 83002; 83036; 83090; 83540; 83550; 84144; 84402; 84403; 84439; 84443; 84481; 85025; 86140; 86304

== ENCOUNTER → 2025-04-16 11:06 | Outpatient (CLI) | payer OTHER, SELFPAY ==
[2025-04-16 12:01] LABS: Add Manual Diff / Slide Review NO; Hematocrit 42.2 % (36-46); Hemoglobin 14.4 g/dL (12.0-16.0); Lymphocytes Absolute Auto 2400 /uL (1100-4500); Mean Corpuscular HGB Conc 34.2 % (30-36); Mean Corpuscular Hemoglobin 29.5 PG (26-34); Mean Corpuscular Volume 86.3 fL (80-100); Platelet Count 335 X10^3/uL (150-400)
[2025-04-16 12:10] LABS: Hemoglobin A1C% w Est Avg Glu 5.1 % (4.0-6.0)
[2025-04-16 12:26] LABS: Glucose 96 mg/dL (70-99)
[2025-04-16 12:43] LABS: Free T3, Triiodothyronine Free 3.11 pg/mL (2.77-5.27); Free T4, Direct Thyroxine 1.54 ng/dL (0.78-2.19)
[2025-04-16 12:57] LABS: Thyroid Stimulating Hormone < 0.015 uIU/mL (0.47-4.68)
[2025-04-16 15:35] LABS: Progesterone, Total 6.92 ng/mL
[2025-04-16 15:50] LABS: Estradiol, Total 69.3 pg/mL
== END ==
PROVIDERS: PCP Internal Medicine; Referring Provider Nurse Practitioner Family; Visit Provider Nurse Practitioner Family
DX: E34.8 Other specified endocrine disorders (principal); E03.8 Other specified hypothyroidism; E88.810 Metabolic syndrome
CPT/HCPCS: 36415; 82670; 82947; 83036; 83090; 84144; 84402; 84403; 84439; 84443; 84481; 85025